=== PATIENT | male | born 1955 | race Caucasian/White ===

== ENCOUNTER → 2020-02-01 | Outpatient (CLI) | payer BC ==
--- NOTE | 2020-02-01 17:48 | US ---
EXAMINATION TYPE: US carotid duplex BILAT DATE OF EXAM: 02/01/2020 COMPARISON: NONE CLINICAL HISTORY: R42 Dizziness and giddiness. Dizziness EXAM MEASUREMENTS: RIGHT: Peak Systolic Velocity (PSV) cm/sec ----- Right CCA: 62.4 ----- Right ICA: 68.1 ----- Right ECA: 71.1 ICA/CCA ratio: 1.1 RIGHT: End Diastole cm/sec ----- Right CCA: 17.4 ----- Right ICA: 21.4 ----- Right ECA: 12.2 LEFT: Peak Systolic Velocity (PSV) cm/sec ----- Left CCA: 74.1 ----- Left ICA: 59.9 ----- Left ECA: 97.4 ICA/CCA ratio: 0.8 LEFT: End Diastole cm/sec ----- Left CCA: 21.0 ----- Left ICA: 21.5 ----- Left ECA: 13.0 VERTEBRALS (direction of flow): Right Vertebral: Antegrade Left Vertebral: Antegrade Rhythm: Normal Bilateral intimal thickening, minimal plaque bilateral bulb, no elevated velocities, no significant s tenosis. IMPRESSION: 1. Intimal thickening without significant flow-limiting stenosis. Criteria for Assigning % of Stenosis / Diameter reduction (Estimation based on the indirect measurements of the internal carotid artery velocities (ICA PSV). 1. Normal (no stenosis)=ICA PSV < 125 cm/s: ratio < 2.0: ICA EDV<40 cm/s. 2. Less than 50% stenosis=ICA PSV < 125 cm/s: ratio < 2.0: ICA EDV<40 cm/s. 3. 50 to 69% stenosis=ICA PSV of 125 to 230 cm/s: ration 2.0 ? 4.0: ICA EDV 40-100 cm/s. 4. Greater than 70% stenosis to near occlusion= ICA PSV > 230 cm/s: ratio > 4.0: ICA EDV > 100 cm/s. 5. Near occlusion= ICA PSV velocities may be low or undetectable: variable ratio and ICA EDV. 6. Total occlusion=unable to detect flow.
== END | disposition home or self-care (01) ==
LOC: RADUSWWP 15:29
PROVIDERS: ATTEND Family Medicine
DX: R42 Dizziness and giddiness (principal)
CPT/HCPCS: 93880

== ENCOUNTER → 2020-03-01 | Outpatient (CLI) | payer BC ==
[~2020-03-01] MED LIST: REGADENOSON 0.4 MG/5 ML SYRINGE IV ONE
--- NOTE | 2020-03-01 14:31 | NM ---
EXAMINATION TYPE: NM stress lexiscan cardiolite DATE OF EXAM: 03/01/2020 COMPARISON: NONE HISTORY: Chest pain TECHNIQUE: After the intravenous administration of 10.47 mCi Tc 99m Sestamibi - Cardiolite resting S PECT images acquired 50 minutes post injection. The patient received 0.4mg Lexiscan, 26.8 mCi Tc 99m Sestamibi - Stress images obtained [address] injection FINDINGS: Review of stress and rest SPECT images demonstrates no distinct perfusion abnormality. Gated analysi s shows normal wall motion with an estimated left ventricular ejection fraction of 62 %. IMPRESSION: 1. No scintigraphic evidence for reversible ischemia. 2. Ejection fraction 62%.
--- NOTE | 2020-03-01 14:44 | EST ---
EXERCISE STRESS AGE: 64 SEX: M HT: 70" WT: 227 lbs. PROTOCOL: Lexiscan Cardiolite STAGE: DURATION OF EXERCISE: HEART RATE REST: 60 BLOOD PRESSURE REST: 124/78 MAXIMUM HEART RATE ACHIEVED: 81 MAXIMUM BLOOD PRESSURE: 119/75 85% MPHR: 130 100% MPHR: 156 METS: INDICATIONS: Dizzy CLINICAL INFORMATION: Baseline EKG shows sinus rhythm, normal axis, normal intervals. Patient was given intravenous Lexiscan as per protocol. Did not have chest pain or diagnostic ST-segment depression. CONCLUSION: 1. Negative stress test by EKG criteria. 2. Cardiolite portion of the stress test will be reported separately. MMODL / IJN: [id number] /
== END | disposition home or self-care (01) ==
LOC: RADNMMAIN 08:20
PROVIDERS: ATTEND Family Medicine
DX: R07.89 Other chest pain (principal)
CPT/HCPCS: 93017; 78452; A9500; J2785

== ENCOUNTER → 2022-12-09 | Outpatient (CLI) | payer MEDICARE ==
--- NOTE | 2022-12-09 17:03 | MR ---
EXAMINATION TYPE: MR angio neck wo/w con, MR angio head wo con DATE OF EXAM: 12/09/2022 4:15 PM CLINICAL INDICATION:Male, 67 years old with history of M54.2 I65.23; Severe chronic right sided neck pain and headaches, history of carotid stenosis. COMPARISON: None Technical: MRA brain: 2D and 3-D [id number] Axial with MIP and 3-D reconstruction. Performed on a separate w orkstation. MRA neck: Multiplanar, multi-sequence imaging as well as grqi-yr-[id number] and phase was performed extra cranial vasculature of the neck. 3-D reformatted images and maximum intensity projection reformatted images were submitted for evaluation, these are performed on a separate workstation. IV Contrast: 11 cc Gadavist Findings: Vertebral arteries: The vertebral arteries are patent. The left vertebral artery is dominant. Basilar artery: The basilar artery is intact. The basilar artery bifurcation is normal. Internal Carotid arteries: Saccular aneurysm measuring 3 x 3 mm at the internal carotid artery bifurc ation on the right. Left internal carotid artery DEMARCO: Patent with no evidence of aneurysm. ACOM: Present without evidence of aneurysm. MCA: No evidence for aneurysm after the bifurcation aneurysm mentioned above ROLLS BAKER: Patent with no evidence of aneurysm. PCOM: Hypoplastic bilaterally. RIGHT CAROTID SYSTEM: The common carotid artery is patent. The carotid bifurcations demonstrates no evidence for hemodynamically significant stenosis. Medialization of the internal carotid artery. Ther e is tortuosity of the internal carotid artery which is patent, there is flow artifact in the 2-D alesha ging series 301 imaging and better localization during the 3-D series 401 imaging. Series 301 image 8 2-85. In series 411 images 54-74. Aneurysm and its bifurcation as mentioned above. LEFT CAROTID SYSTEM: The common carotid artery is patent. Medialization of the internal carotid mustapha ry. The carotid bifurcations demonstrates no evidence for hemodynamically significant stenosis. The i nternal carotid artery is patent with tortuosity. The origins of the great vessels and vertebral arteries appear unremarkable. IMPRESSION: 1. 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 2. No evidence of intracranial significant stenosis. 3. No evidence of significant stenosis at the carotid bifurcations. The carotid and vertebral arteri es are patent. 4. Tortuosity of the internal carotid bifurcations with medialization of the course.
== END | disposition home or self-care (01) ==
LOC: RADMRIMAIN 15:14
PROVIDERS: ATTEND Psychiatry & Neurology Neurology
DX: I65.23 Occlusion and stenosis of bilateral carotid arteries (principal); M54.2 Cervicalgia; R51.9 Headache, unspecified
CPT/HCPCS: 70544; 70549; A9585

== ENCOUNTER → 2023-03-17 | Outpatient (CLI) | payer MEDICARE ==
--- NOTE | 2023-03-17 11:58 | XR ---
EXAMINATION TYPE: XR cervical spine limited DATE OF EXAM: 03/17/2023 COMPARISON: NONE HISTORY: Neck pain TECHNIQUE: Four views are submitted. FINDINGS: The odontoid is intact. There are no compression deformities. The prevertebral soft tissue structur es are within normal limits. Calcification in the soft tissues of the left neck likely vascular. Emp hysematous changes of the lung apices. There is severe degenerative disc disease C4-5 and C5-C6 and C 7. Lucency along the endplate of C5-C6. Moderate changes at remaining levels. Multilevel facet arthro perfecto odontoid is not seen and nondiagnostic. Posterior elements of C1 appears somewhat anterior rela tive to C2 and odontoid fracture not excluded. Additionally, the lateral masses appear displaced rela tive to the body of C2. IMPRESSION: 1. Severe multilevel degenerative disc disease. Suspect foraminal encroachment. Odontoid is not well seen. The posterior elements of the C1 appears somewhat anterior relative to C2. Cannot exclude odont oid abnormality\fracture. Recommend CT of the cervical spine. Report called to referring clinician 11 :52 AM at 03/17/2023.
== END | disposition home or self-care (01) ==
LOC: RADXRMAIN 11:16
PROVIDERS: ATTEND Family Medicine
DX: M50.321 Other cervical disc degeneration at C4-C5 level (principal)
CPT/HCPCS: 72040

== ENCOUNTER → 2023-03-18 | Outpatient (CLI) | payer MEDICARE ==
[2023-03-18 16:03] LABS: Basophils # (A) 0.04 X 10*3/uL (0.00-0.10); Basophils % (A) 0.5 %; Eosinophils # (A) 0.19 X 10*3/uL (0.04-0.35); Eosinophils % (A) 2.2 %; HCT 40.6 % (39.6-50.0); HGB 13.6 d/dL (13.0-17.0); Lymphocytes # (A) 2.24 X 10*3/uL (0.90-5.00); Lymphocytes % (A) 25.7 %; MCH 31.1 pg (27.0-32.0); MCHC 33.5 d/dL (32.0-37.0); MCV 92.9 FL (80.0-97.0); Mean Platelet Volume 10.1 FL (9.5-12.2); Monocytes # (A) 0.82 X 10*3/uL (0.20-1.00); Monocytes % (A) 9.4 %; NRBC Per 100 WBC 0 X 10*3/uL (0.00-0.01); Neutrophils # (A) 5.37 X 10*3/uL (1.80-7.70); Neutrophils % (A) 61.6 %; Platelet Count 354 X 10*3/uL (140-440); RBC 4.37 X 10*6/uL (4.40-5.60); RDW 13.8 % (11.5-14.5); WBC 8.71 X 10*3/uL (4.50-10.00)
[2023-03-18 16:05] LABS: ALT 15 U/L (10-49); AST 19 U/L (14-35); Albumin 4.4 d/dL (3.8-4.9); Albumin/Globulin Ratio 1.47 Ratio (1.60-3.17); Alkaline Phosphatase 60 U/L (41-126); BUN/Creat Ratio 15.33 Ratio (12.00-20.00); Blood Urea Nitrogen 9.2 mg/dL (9.0-27.0); Calcium 9.4 mg/dL (8.7-10.3); Carbon Dioxide 25.6 mmol/L (21.6-31.8); Chloride 95 mmol/L (96-109); Chol/HDL Ratio 3.48 Ratio; Glucose 90 mg/dL (70-110); Potassium 4.3 mmol/L (3.5-5.5); Sodium 132 mmol/L (135-145); Total Bilirubin 0.5 mg/dL (0.3-1.2); Total Protein 7.4 d/dL (6.2-8.2)
[2023-03-18 21:07] LABS: Rheumatoid Factor, Qnt 313 IU/mL (0-15)
[2023-03-19 14:04] LABS: APTT 58 Sec(s) (<43); APTT 1:1 Mix 48 Sec(s) (<43); DRVVT 1:1 Mix 48 Sec(s) (<44); DRVVT Confirmation Positive (Negative); Dilute Russell Viper Venom 57 Sec(s) (<44); Hexagonal Phase Neutralization Positive (Negative)
== END | disposition home or self-care (01) ==
LOC: LABWHC1 09:51
PROVIDERS: ATTEND Family Medicine
DX: Z12.5 Encounter for screening for malignant neoplasm of prostate (principal); M54.2 Cervicalgia
CPT/HCPCS: 80061; 80053; 85025; 85730; 86431; 85613; 86038; 36415; G0103; 85598; 85732

== ENCOUNTER → 2023-03-27 | Outpatient (CLI) | payer MEDICARE ==
--- NOTE | 2023-03-28 09:03 | CT ---
EXAMINATION TYPE: CT cervical spine wo/w con DATE OF EXAM: 03/27/2023 COMPARISON: Plain films 03/17/2023 HISTORY: right side neck pain and headaches, x1 year CT DLP: 1501 mGycm Automated exposure control for dose reduction was used. Contrast: None Technique: Axial images 2 mm thick sections. Reconstructed images in the coronal and sagittal planes. Postcontrast imaging is performed. FINDINGS: The preodontoid space is increased between C1 and C2 measuring 0.8 cm. This is above normal. C1 may b e slightly anteriorly subluxed in relation to the occiput. There is loss of disc height throughout the cervical spine. Some cervical fusion posteriorly may be a cquired between C2-3 C3-4 and C4-5. Some posterior endplate spurring from the inferior endplate of C5 may be present. Disc space narrowing remains present C5-6 and C6-7. Foraminal stenosis is present C3-4 through C6-7 bilaterally. AP spinal canal stenosis is not otherwis e evident. Emphysematous changes are noted in the lung apices within the jgvzp-ya-eyas IMPRESSION: 1. SUSPECTED SUBLUXATION OF C1 IN RELATION TO THE OCCIPUT. THIS INCREASES THE DISTANCE BETWEEN THE OD ONTOID AND C1. SOME CANAL NARROWING WITHOUT STENOSIS IS PRESENT BETWEEN THE ODONTOID AND POSTERIOR C1 . 2. MULTI LEVEL LOSS OF DISC HEIGHT WITH SOME APPARENT ACQUIRED FUSION POSTERIORLY OF C2 TO 3 THROUGH C4-5. 3. MULTILEVEL BILATERAL MODERATE FORAMINAL NARROWING C3-4 THROUGH C6-7.
== END | disposition home or self-care (01) ==
LOC: RADCTMAIN 10:29
PROVIDERS: ATTEND Family Medicine
DX: M99.71 Connective tissue and disc stenosis of intervertebral foramina of cervical region (principal); M50.31 Other cervical disc degeneration, high cervical region
CPT/HCPCS: 72127; Q9967

== ENCOUNTER → 2023-04-24 | Outpatient (CLI) | payer MEDICARE ==
--- NOTE | 2023-04-24 12:47 | MR ---
EXAMINATION TYPE: MR cervical spine wo con DATE OF EXAM: 04/24/2023 COMPARISON: CT 03/27/2023 HISTORY: 67-year-old male M54.2, S13.120D, Neck pain x 1 yr S/P head injury. TECHNIQUE: Multiplanar, multisequence images of the cervical spine were acquired without contrast. FINDINGS: There is fluid in the predental space with widening of 8 mm. Severe degenerative change towards the r ight at the C1-C2 lateral mass articulation. Retrolisthesis at C1-C2. Review of the patient's CT show s interbody ankylosis across the right-sided lateral mass articulation. The subluxation contributes to mild narrowing of the spinal canal at the C1 level. No gely canal com promise here. There is right-sided interbody ankylosis across C3, C4, C5 levels. Fatty Modic type II endplate stokes es present throughout these vertebral bodies. Moderate disc/degenerative change just below at C5-C6 with some edematous Modic type I endplate stokes e. Additional moderate degenerative disc disease C2-C3 and C7-T1. Hypertrophic facet and uncovertebral joint arthropathy. Scattered ankylosis across posterior elements and facet joints on both sides. Posterior osteophytic ridging and mild disc bulging along with ligamentum flavum thickening contribut es to variable mild narrowing of the spinal canal down to 9 mm throughout. Again, no gely canal compromise or cord compression is seen. On sagittal STIR, prominent signal artifacts project over the cord. No definite cord edema on axial s eries. At C3-C4, there appears to be moderate right neuroforaminal stenosis. At C4-C5, mild left neuroforaminal stenosis. At C5-C6, moderate bilateral neuroforaminal stenosis. At C6/C7, mild to moderate left and mild right neuroforaminal stenosis. Degenerative grade 1 retrolisthesis C2-C3. Retropharyngeal course of the ICAs. IMPRESSION: 1. Moderate multilevel spondylotic change. Multiple levels of degenerative bony ankylosis across the facet joints on both sides. Also, bony ankylosis of the C3, C4, and C5 vertebral bodies. 2. Posterior osteophytic ridging, mild disc bulging, and scattered ligamentum flavum thickening varia himanshu throughout. This contributes to mild diffuse narrowing of the spinal canal down to 9 mm throughou t. No cord compression or gely canal compromise is seen. 3. While there is abnormal predental space widening up to 8 mm (suggesting prior injury to the transv erse ligament), there is degenerative bony ankylosis across the right C1-C2 lateral mass articulation that likely gives stability to the subluxation. There is only mild narrowing of the spinal canal at this level. Again, no gely canal compromise. Additional bony ankylosis across the right-sided cranio cervical articulation. 4. Variable mild and moderate neuroforaminal stenoses as outlined above.
== END | disposition home or self-care (01) ==
LOC: RADMRIMAIN 10:47
PROVIDERS: ATTEND Orthopaedic Surgery
DX: S13.120D Subluxation of C1/C2 cervical vertebrae, subsequent encounter (principal); M47.812 Spondylosis without myelopathy or radiculopathy, cervical region; M99.71 Connective tissue and disc stenosis of intervertebral foramina of cervical region; M48.02 Spinal stenosis, cervical region; M50.30 Other cervical disc degeneration, unspecified cervical region; M45.2 Ankylosing spondylitis of cervical region; X58.XXXD Exposure to other specified factors, subsequent encounter
CPT/HCPCS: 72141

== ENCOUNTER → 2023-07-23 | Outpatient (CLI) | payer MEDICARE ==
[2023-07-23 18:56] LABS: Basophils # (A) 0.03 X 10*3/uL (0.00-0.10); Basophils % (A) 0.3 %; Eosinophils # (A) 0.13 X 10*3/uL (0.04-0.35); Eosinophils % (A) 1.4 %; HCT 40.1 % (39.6-50.0); HGB 13.2 g/dL (13.0-17.0); Lymphocytes % (A) 22.3 %; MCH 31.2 pg (27.0-32.0); MCHC 32.9 g/dL (32.0-37.0); MCV 94.8 FL (80.0-97.0); Mean Platelet Volume 10.2 FL (9.5-12.2); Monocytes # (A) 0.91 X 10*3/uL (0.20-1.00); Monocytes % (A) 9.7 %; NRBC Per 100 WBC 0 X 10*3/uL (0.00-0.01); Neutrophils # (A) 6.18 X 10*3/uL (1.80-7.70); Neutrophils % (A) 65.8 %; Platelet Count 320 X 10*3/uL (140-440); RBC 4.23 X 10*6/uL (4.40-5.60); RDW 14.6 % (11.5-14.5)
[2023-07-23 19:33] LABS: INR 1.06 sec (0.93-1.11); Prothrombin Time 11.4 sec (9.9-11.9)
[2023-07-23 23:28] LABS: ALT 14 U/L (10-49); AST 16 U/L (14-35); Albumin 4.4 g/dL (3.8-4.9); Albumin/Globulin Ratio 1.57 Ratio (1.60-3.17); Alkaline Phosphatase 61 U/L (41-126); BUN/Creat Ratio 20.83 Ratio (12.00-20.00); Blood Urea Nitrogen 12.5 mg/dL (9.0-27.0); Calcium 9.7 mg/dL (8.7-10.3); Carbon Dioxide 26.3 mmol/L (21.6-31.8); Chloride 93 mmol/L (96-109); Globulin 2.8 g/dL (1.6-3.3); Glucose 85 mg/dL (70-110); Potassium 4.5 mmol/L (3.5-5.5); Sodium 133 mmol/L (135-145); Total Bilirubin 0.3 mg/dL (0.3-1.2); Total Protein 7.2 g/dL (6.2-8.2)
== END | disposition home or self-care (01) ==
LOC: LABWHC1 12:17
PROVIDERS: ATTEND Family Medicine
DX: G89.29 Other chronic pain (principal)
CPT/HCPCS: 36415; 80053; 82306; 85025; 85610

== ENCOUNTER → 2023-08-07 | Outpatient (CLI) | payer MEDICARE | END | disposition home or self-care (01) | LOC: LABPAT 11:36 | PROVIDERS: ATTEND Orthopaedic Surgery | DX: Z01.812 Encounter for preprocedural laboratory examination (principal); Z22.322 Carrier or suspected carrier of Methicillin resistant Staphylococcus aureus; M54.2 Cervicalgia | CPT/HCPCS: 36415; 86850; 86900; 86901; 87070 ==

== ENCOUNTER 2023-08-11 06:53 | Inpatient (IN) | payer MEDICARE ==
[2023-08-06 16:32] VITALS: BMI 33.0
--- NOTE | 2023-08-11 06:47 | P.HPOR ---
History of Present Illness H&P Date: 08/07/23 .D:Date: 08/07/23 : 10:48am .T:Title: [facility] History and Physical Date of :55 [id number]: NKDA Age: 67 year Height: 5'10" Weight: 228 lbs BMI: 32.71 kg/m2 Occupation: Retired VAS: 4 Hand:Right IMPRESSION: It was my pleasure to have seen and examined Dhaval. I reviewed the patient's clinical syndrome, physical findings, and imaging studies during the appointment today. It is my impression that the patient has a diagnosis of. 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 Neck pain 4. subaxial subluxation 5. Basilar invagination I outlined the natural course history without intervention and various interventional options. Spine Surgery Risk Review Mr. Bah is presenting for evaluation of neck pain It was my pleasure to have seen and examined Mr. Bah. In our visit today we have had a chance to go over subjective complaints, physical examination findings and treatments including the natural course history without intervention and various interventional options. The patients imaging demonstrates: Severe rheumatological signs of neck deterioration with rheumatoid spondylotic arthropathy, C1-2 instability with increased LACHO >3; Basilar invagination; Subaxial subluxation. Severe spondylosis of subaxial cervical levels as well with severe stenosis. On physical exam, Mr. Bah demonstrates: Neck pain, limited ROM secondary to neck pain and spondylosis as well as basilar issues. UE and LE weakness. Discoordination. Myelopathy I have explained to the patient that as their condition progresses it will cause further neurological deficits and eventual paralysis. Based on the patients imaging, physical exam, and the rapid progression and disabling nature of their symptoms, at this time I recommend surgery in the form of a: Occipital - T2 decompression and fusion. I discussed the risk and benefits of this procedure at length with Mr. Bah. The patient agreed to considered pursuing the procedure abovementioned. Prior to surgery, she should follow up with her PCP (Cardio, ID, IM etc) for clearance. Questions were invited and answered, and the patient wishes to proceed as outlined below. Currently, I am recommendin.Occipital - T2 decompression and fusion 2.Review of surgical risks and benefits as well as an educational packet on the proposed surgical procedure. Risks: All surgical procedures come with inherent risks, including those related to positioning, anesthesia, intraoperative findings, and postoperative complications. It is important to understand that surgery does not come with any guarantee of a successful outcome as complications and adverse events are always possible. The patient was given a handout in office today discussing the surgical procedure and risks associated with the intervention, both of which were discussed with the patient. These risks include but are not limited to the following: * Experiencing same, different or even worse symptoms in back, neck, arms, or legs compared to before surgery. Requiring further surgery or other forms of treatment presently or at some time in the future at same or other levels of the intended spine surgery. On an extreme but fortunately relatively rare basis severe complication such as blindness, stroke, heart attack, temporary and/or permanent nerve injury, pa ralysis, coma, or may occur, sometimes without known explanation. Surgical complications may include but are not limited to risk of infection, fluid accumulation in the surgical dissection site, including a seroma or hematoma, that requires additional surgery, wound drainage, bleeding, new numbness or weakness, vision changes/loss, spinal fluid leakage, non-healing and/or infected incision, headaches, difficulty or inability to swallow, hoarseness, hemopneumothorax, pneumothorax, impotence, retrograde ejaculation, vaginal dryness; injury to nerves, spinal cord, blood vessels, lymphatics or other vital organs (i.e., bowel injury, injury to the great vessels); heterotopic bone formation; complications related to the hardware such as screws, rods, cages including misplaced hardware, device failure, instrumentation at the wrong spine level, hardware fracture/breakage, or hardware loosening; vertebral failure of the spinal column above or below the newly placed hardware; retained surgical instrumentations or devices and the need for further surgery. * Medical risks of the planned spine surgery include but are not limited to generalized Infections to the whole body or local areas outside of the surgical site (sepsis), heart attack, bleeding, anaphylaxis, meningitis, seizure, epilepsy, hearing loss, burn cerrato, laceration of the head or other areas of the body, bruising, hypersensitivity of the skin, bladder over distension; allergic reaction; shoulder injury related to positioning; fat, blood and air clots to other areas of the body like heart, lungs, brain; failure of internal organs such as lungs, kidneys, liver and excessive bleeding. If blood transfusions are necessary, note that transfusions may cause intolerance reactions such as anaphylaxis or other complex reactions. Despite best efforts, the results of spine surgery might not heal in terms of bone, soft tissues such as skin, fascia, ligaments, and joints. Additionally, in order to achieve best possible results, spine surgery may be carried out beyond the initially planned levels and involve decompression, fusion including insertion of hardware at levels other than the original intended area of trino gical interest change some portions of the procedure in order to ensure the best possible outcomes. With spine surgery and spinal fusion, there are different off label uses of instrumentation (devices, implants and hardware) as well as biological substances (bone morphogenic proteins, demineralized bone matrix) as well as using extra bone from allograft sources (i.e. cadaver bone) or autograft (iliac crest bone, ribs, or the spine itself). The patient has been given information about these practices and their inherent risks and benefits. [facility] is an educational center that serves as a training facility for neurosurgical and orthopedic [employer] and Nursing students. Physician assistants are medically trained surgical providers who function in the outpatient, inpatient, and operating room setting under the direct supervision of the attending surgeon. [facility] has multiple operating rooms with single and overlapping rooms running daily. They currently function under the required guidelines as produced by the [facility] Finance Committee with regards to the overlapping rooms and will continue to comply with changes to this policy as they occur. The requirements include and are complied with as follows: (1) the critical portions of the overlapping rooms will not occur at the same time, (2) the attending physician will be physically present during the critical portions of the procedure and immediately available during the entire case, and (3) a back-up attending is designated should the primary attending not be immediately available. The patient has had a chance to review all the listed information, has been given print outs detailing this information, and has had all his/her questions answered to their satisfaction. It was my pleasure to have seen and examined Mr. Bah. In our visit today we have had a chance to go over my understanding of our patient's current condition, the natural course history without intervention and various interventional options. Questions were invited and answered, and the patient wishes to proceed as outlined above. I have seen and examined the patient for 25 minutes and we have spent more than 50% of the time in repeat and detailed counseling about the patient's condition, its natural course history with out and as much as can be predicted with surgery and re-review of various surgical treatment options. In conclusion, Mr. Bah requested we proceed with the above suggested surgery and are willing to accept risks and limitations of the suggested surgery as nature of the disease process and our best attempts at treatment for the condition. Thank you again for allowing us to be part of your patient's care. Please don't hesitate to contact me if you have any further questions. Follow- up: Post procedure Patient Education: (Informational booklet, instructions, etc) given at today's appointment: Yes .ED:Patient Education: Y Medications Reviewed: YES In our visit today Mr. Bah and I have had a chance to go over my understanding of the patient's current condition, the natural course history without intervention and various interventional options. Questions were invited and answered, and the patient wishes to proceed as outlined above. I will be sure to keep you updated afterMr. Bah returns here for further follow-up. Thank you again for your referral. Please do not hesitate to contact me if you have any further questions. Signed and authenticated by: Dhaval Byrd [facility] [address] [place] [id number] This message is confidential, intended only for the named recipient(s) and may contain information that is privileged or exempt from disclosure under applicable law. If you are not the intended recipient(s), you are notified that the dissemination, distribution or copying of this information is strictly prohibited. If you received this message in error, please notify the sender then delete this message. Patient verbalizes understanding of the information discussed. The above note was initiated by Dahlia Quinones, physician recording golf course assistant for Dr. Dhaval Kumar. This note has been reviewed by Dr. Kumar, who has made his personal changes and impressions for this document. CC: Faheem Loyd MD # SIGNED BY Dhaval Kumar (GOO)08/11/2023 06:46AM Past Medical History Past Medical History: No Reported History Additional Past Medical History / Comment(s): Daily headaches. History of Any Multi-Drug Resistant Organisms: None Reported Past Surgical History: Orthopedic Surgery Additional Past Surgical History / Comment(s): KNEE ARTHROSCOPY Past Anesthesia/Blood Transfusion Reactions: No Reported Reaction Past Alcohol Use History: Heavy Additional Past Alcohol Use History / Comment(s): STARTED SMOKING AT AGE 16 - Past Family History Father Family Medical History: No Reported History Medications and Allergies Home Medications Medication Instructions Recorded Confirmed Type Cholecalciferol (Vitamin D3) 125 mcg PO DAILY 08/07/23 08/07/23 History [Vitamin D3 (125 MCG = 5,000 IU)] Glucosamine (Unknown Dose) 1 tab PO DAILY 08/07/23 08/07/23 History Multivitamins, Thera [Multivitamin 1 tab PO DAILY 08/07/23 08/07/23 History (formulary)] Rivaroxaban [Xarelto] 2.5 mg PO DAILY 08/07/23 08/07/23 History Telmisartan/Hydrochlorothiazid 1 each PO QAM 08/07/23 08/07/23 History [Telmisartan-Hctz 80-25 mg Tab] methocarbamoL 750 mg PO TID PRN 08/07/23 08/07/23 History Allergies Allergy/AdvReac Type Severity Reaction Status Date / Time No Known Allergies Allergy Verified 08/06/23 16:03 Physical Examination Osteopathic Statement: *. No significant issues noted on an osteopathic structural exam other than those noted in the History and Physical/Consult.
[~2023-08-11 06:53] MED LIST changes: +ACETAMINOPHEN TAB 500 MG TAB PO PRN; +GABAPENTIN 300 MG CAP PO PRN; +ONDANSETRON 4 MG/2 ML VIAL IVP PRN; -REGADENOSON 0.4 MG/5 ML SYRINGE IV ONE; +TRANEXAMIC 1,000 MG/100ML-NACL 1,000 MG in SALINE 1 100ML.BAG IVPB PRN
[2023-08-11] MEDS ORDERED: HYDROmorphone 0.5 MG/0.5 ML SYRINGE IVP PRN (07:00)
[2023-08-11] MEDS ORDERED: MIDAZOLAM 2 MG/2 ML VIAL IV PRN (07:00)
[2023-08-11] MEDS: LACTATED RINGERS 1,000 ML IV SCH (07:15)
[2023-08-11] MEDS ORDERED: MIDAZOLAM 2 MG/2 ML VIAL IVP ONE (08:07)
[2023-08-11] MEDS ORDERED: fentaNYL (PF) 50 MCG/ML 2 ML AMP IVP ONE (08:08)
[2023-08-11] MEDS ORDERED: PROPOFOL 10 MG/ML 20 ML VIAL IV ONE (09:12)
[2023-08-11] MEDS ORDERED: MIDAZOLAM 2 MG/2 ML VIAL ONE (09:12)
[2023-08-11] MEDS ORDERED: fentaNYL (PF) 50 MCG/ML 2 ML AMP ONE (09:12)
[2023-08-11] MEDS ORDERED: NEOSTIGMINE 1 MG/ML 10 ML VIAL ONE (09:12)
[2023-08-11] MEDS ORDERED: GLYCOPYRROLATE 0.2 MG/ML 2 ML VIAL ONE (09:12)
[2023-08-11] MEDS ORDERED: TRANEXAMIC 1,000 MG/100ML-NACL PREMIX BAG ONE (09:12)
[2023-08-11] MEDS ORDERED: SUCCINYLCHOLINE CHLORIDE 200 MG/10 ML VIAL IV ONE (09:12)
[2023-08-11] MEDS ORDERED: LIDOCAINE 1% INJ 10MG/ML (20 ML MDV) ONE (09:12)
[2023-08-11] MEDS ORDERED: ROCURONIUM 10 MG/ML (5 ML VIAL) IV ONE (09:12)
[2023-08-11] MEDS ORDERED: PHENYLEPHRINE-0.9% NACL SYG 1,000 MCG/10 ML SYRINGE ONE (09:12)
[2023-08-11] MEDS ORDERED: THROMBIN (BOVINE) 5,000 UNIT VIAL TOPICAL ONE ×3 (10:14)
[2023-08-11] MEDS ORDERED: GELATIN SPONGE,ABSORB (SMALL) 1 EACH SPONGE TOPICAL ONE (10:14)
[2023-08-11] MEDS ORDERED: LACTATED RINGERS 1,000 ML IV ONE (12:43)
[2023-08-11] MEDS ORDERED: VANCOMYCIN 1,000 MG VIAL MISCELLANE ONE (13:45)
[2023-08-11] MEDS ORDERED: HYDROmorphone 0.5 MG/0.5 ML SYRINGE IVP ONE ×3 (14:53→15:21)
--- NOTE | 2023-08-11 14:59 | FL ---
EXAMINATION TYPE: FL guidance operating room, XR cervical spine limited Intraoperative/procedural flu oroscopic services were provided. Total fluoroscopy time is 1 minute 18 seconds with a total of 14 jackson bmitted images to PACS. Please see the operative/procedural note for further details. DAP: 2.9271 Gycm2
[2023-08-11] MEDS ORDERED: methocarbamoL 750 MG TAB PO PRN (15:02)
[2023-08-11] MEDS ORDERED: MAGNESIUM HYDROXIDE 2,400 MG/30 ML CUP PO PRN (15:02)
[2023-08-11] MEDS ORDERED: SENNOSIDES-DOCUSATE SODIUM 1 EACH TAB PO PRN (15:02)
[2023-08-11] MEDS ORDERED: NALOXONE 0.4 MG/ML 1 ML VIAL IV PRN (16:02)
[2023-08-11 16:11] LABS: Glucose,Whole Blood 121 mg/dL (70-110)
--- NOTE | 2023-08-11 16:48 | P.CNPUL ---
History of Present Illness Consult date: 08/11/23 Requesting physician: Dhaval Kumar Reason for consult: other (Critical care management) Chief complaint: Neck pain History of present illness: This is a pleasant 67-year-old male patient with a known history of rheumatoid spondylotic myelopathy with deformity and ongoing neck pain. He was brought in electively today and had undergone a posterior cervical decompression fusion occipital to T2 with nerve integrity monitoring. Based on the location of the surgery he was admitted to the intensive care unit for close monitoring overnight. He is currently resting comfortably in bed. Hard c-collar in place. He is maintaining good O2 saturations in the 90s on 2 L/m per nasal cannula. He's been afebrile. Hemodynamically stable. His been initiated on cefazolin. He has lactated Ringer's at 20 ML's per hour. He will receive [place] alternating with Dilaudid for pain control. Review of Systems REVIEW OF SYSTEMS: CONSTITUTIONAL: Denies any recent significant weight loss or weight gain. EYES: Denies change in vision. EARS, NOSE, MOUTH, THROAT: Denies headaches, denies sore throat. CARDIOVASCULAR: Denies chest pain, palpitations or syncopal episodes. RESPIRATORY: Denies shortness of breath, cough, congestion or hemoptysis. GASTROINTESTINAL: Denies change in appetite, denies abdominal pain GENITOURINARY: Denies hematuria, denies infections. MUSKULOSKELETAL: Positive for neck pain. INTEGUMENTARY: Denies rash, denies eczema. NEUROLOGICAL: Denies recent memory loss, no recent seizure activity. PSYCHIATRIC: Denies anxiety, denies depression. HEMATOLOGIC/LYMPHATIC: Denies anemia, denies enlarged lymph nodes. Past Medical History Past Medical History: No Reported History Additional Past Medical History / Comment(s): Daily headaches. History of Any Multi-Drug Resistant Organisms: None Reported Past Surgical History: Orthopedic Surgery Additional Past Surgical History / Comment(s): KNEE ARTHROSCOPY Past Anesthesia/Blood Transfusion Reactions: No Reported Reaction Past Alcohol Use History: Heavy Additional Past Alcohol Use History / Comment(s): STARTED SMOKING AT AGE 16 - Past Family History Father Family Medical History: No Reported History Medications and Allergies Home Medications Medication Instructions Recorded Confirmed Type Cholecalciferol (Vitamin D3) 125 mcg PO DAILY 08/07/23 08/11/23 History [Vitamin D3 (125 MCG = 5,000 IU)] Glucosamine (Unknown Dose) 1 tab PO DAILY 08/07/23 08/11/23 History Multivitamins, Thera [Multivitamin 1 tab PO DAILY 08/07/23 08/11/23 History (formulary)] Rivaroxaban [Xarelto] 2.5 mg PO DAILY 08/07/23 08/11/23 History Telmisartan/Hydrochlorothiazid 1 each PO QAM 08/07/23 08/11/23 History [Telmisartan-Hctz 80-25 mg Tab] methocarbamoL 750 mg PO TID PRN 08/07/23 08/11/23 History Allergies Allergy/AdvReac Type Severity Reaction Status Date / Time No Known Allergies Allergy Verified 08/11/23 07:28 Physical Exam Vitals: Vital Signs Temp Pulse Resp BP Pulse Ox 08/11/23 15:59 74 20 136/72 97 08/11/23 15:31 72 18 132/66 95 08/11/23 15:16 73 20 135/75 94 L 08/11/23 15:01 73 20 134/85 94 L 08/11/23 14:46 97.2 F L 79 16 137/70 98 08/11/23 08:23 80 18 119/74 96 08/11/23 07:27 97.0 F L 75 18 119/65 96 Intake and Output 08/11/23 08/11/23 08/11/23 06:59 14:59 22:59 Intake Total 1950 Output Total 600 400 Balance 1350 -400 Intake: IV 1950 Output: Urine 500 400 Estimated Blood Loss 100 Other: Weight 104.6 kg GENERAL EXAM: Alert, 7-year-old male patient, resting flat in bed, on 2 L nasal cannula, comfortable in no apparent distress. HEAD: Normocephalic. EYES: Normal reaction of pupils, equal size. NOSE: Clear with pink turbinates. THROAT: No erythema or exudates. NECK: C- collar in place. No masses, no JVD. CHEST: No chest wall deformity. LUNGS: Equal air entry with no crackles, wheeze, rhonchi or dullness. CVS: S1 and S2 normal with no audible murmur, regular rhythm. ABDOMEN: No hepatosplenomegaly, normal bowel sounds, no guarding or rigidity. SPINE: No scoliosis or deformity SKIN: No rashes CENTRAL NERVOUS SYSTEM: No focal deficits, tone is normal in all 4 extremities. EXTREMITIES: There is no peripheral edema. No clubbing, no cyanosis. Peripheral pulses are intact. 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 Postoperative day #0 History of hypertension Chronic tobacco dependence Plan: The patient was seen and evaluated Currently stable and on 2 L nasal cannula Continued on cefazolin [place] and Dilaudid for pain control as needed Plan is to monitor overnight here in the intensive care unit We will continue to follow and make further recommendations based on his c linical status I have personally seen and examined the patient, performed the documentation and the assessment and plan as written. Number of minutes spent on the visit: 20.
[2023-08-11] MEDS: ACETAMINOPHEN TAB 325 MG TAB PO SCH ×2 (17:01→23:16)
--- NOTE | 2023-08-11 17:34 | P.CONS ---
History of Present Illness - Reason for Consult Consult date: 08/11/23 - Chief Complaint med mgmt - History of Present Illness 67-year-old man with a medical history of hypertension, osteoarthritis, rheumatoid arthritis, presented for elective cervical decompression fusion from occipital to T2. Medicine was consulted for medical management. Patient's only complaint is right-sided headache consistent with his history of chronic headaches for the last several months, not associated with photophobia, phonophobia, nausea, vomiting, visual disturbance. Patient otherwise has no complaints status post surgery. He is resting in bed comfortably with c-collar in place. Today, patient is afebrile, 160/72, heart rate 76, 92% on 2 L of nasal cannula. His qaeie-ab-eicj glucose is 121, no other labs to review at this time. All Systems reviewed and pertinent positives and negatives noted in HPI, all other symptoms are negative Gen: In NAD, non-toxic HEENT: normocephalic, atraumatic, hearing acuity is intant, mucous membranes moist CVS: perfusing all extremities well, no pitting edema, Respiratory: symmetric chest expansion, no accessory muscle use, GI: soft, NTTP, ND, : no suprapubic tenderness, no CVA tenderness MSK/Derm: no rashes, cyanosis Neuro: CN II-XII intact, no motor weakness, Psych: cooperative, euthymic mood, judgment and insight is intact Labs and imaging as above Assessment/plan: Hypertension -Okay to resume patient's home telmisartan/hydrochlorothiazide once BMP confirms no kidney dysfunction/RONNIE -I ordered BMP, magnesium for tomorrow Right-sided headache -Tylenol as needed -Consideration of migraine abortive meds and outpatient referral to neurology if these headaches do not resolve status post-operation Osteoarthritis Rheumatoid arthritis Cervical decompression, occiput to T2 -Care per primary team -DVT prophylaxis per primary team -I requested that nursing touch base with consulting provider tomorrow prior to starting DVT prophylaxis because patient is on Xarelto at home, but does not appear to meet any indication that it is clear, specifically, he does not have a history of atrial fibrillation, VTE, or chronic CAD, but does appear to be taking a low dose of 2.5 mg Xarelto daily. We can consider using his home dose of Xarelto for DVT prophylaxis, but long-term the indication for this medication needs to be elucidated. Potentially, it was started for history of "narrowing of neck artery", however, patient is not on aspirin or another antiplatelet. For now we will order carotid duplex for further characterization of neck narrowing. Patient is full code Past Medical History Past Medical History: No Reported History Additional Past Medical History / Comment(s): Daily headaches. History of Any Multi-Drug Resistant Organisms: None Reported Past Surgical History: Orthopedic Surgery Additional Past Surgical History / Comment(s): KNEE ARTHROSCOPY Past Anesthesia/Blood Transfusion Reactions: No Reported Reaction Past Alcohol Use History: Heavy Additional Past Alcohol Use History / Comment(s): STARTED SMOKING AT AGE 16 - Past Family History Father Family Medical History: No Reported History Medications and Allergies Home Medications Medication Instructions Recorded Confirmed Type Cholecalciferol (Vitamin D3) 125 mcg PO DAILY 08/07/23 08/11/23 History [Vitamin D3 (125 MCG = 5,000 IU)] Glucosamine (Unknown Dose) 1 tab PO DAILY 08/07/23 08/11/23 History Multivitamins, Thera [Multivitamin 1 tab PO DAILY 08/07/23 08/11/23 History (formulary)] Rivaroxaban [Xarelto] 2.5 mg PO DAILY 08/07/23 08/11/23 History Telmisartan/Hydrochlorothiazid 1 each PO QAM 08/07/23 08/11/23 History [Telmisartan-Hctz 80-25 mg Tab] methocarbamoL 750 mg PO TID PRN 08/07/23 08/11/23 History Allergies Allergy/AdvReac Type Severity Reaction Status Date / Time No Known Allergies Allergy Verified 08/11/23 07:28 Physical Exam Osteopathic Statement: *. No significant issues noted on an osteopathic structural exam other than those noted in the History and Physical/Consult. Vitals: Vital Signs Temp Pulse Pulse Resp BP BP Pulse Ox 08/11/23 17:00 70 18 98 08/11/23 16:45 75 18 97 08/11/23 16:30 70 18 137/72 96 08/11/23 16:15 97.5 F L 76 19 92 L 08/11/23 15:59 74 20 136/72 97 08/11/23 15:31 72 18 132/66 95 08/11/23 15:16 73 20 135/75 94 L 08/11/23 15:01 73 20 134/85 94 L 08/11/23 14:46 97.2 F L 79 16 137/70 98 08/11/23 08:23 80 18 119/74 96 08/11/23 07:27 97.0 F L 75 18 119/65 96 Intake and Output 08/11/23 08/11/23 08/11/23 06:59 14:59 22:59 Intake Total 1950 150 Output Total 600 400 Balance 1350 -250 Intake: IV 1950 Intake, IV Titration 90 Amount Lactated Ringers 1,000 ml 40 @ 20 mls/hr IV .Q24H YAJAIRA Rx#:[id number] ceFAZolin 2 gm In Sodium 50 Chloride 0.9% 50 ml @ 100 mls/hr IVPB Q8H YAJAIRA Rx#: [id number] Oral 60 Output: Urine 500 400 Estimated Blood Loss 100 Other: Weight 104.6 kg ABP, PAP, CO, CI - Last 8 Hours Arterial Blood Pressure 140/72 Arterial Blood Pressure 149/68 Arterial Blood Pressure 128/81 Arterial Blood Pressure 160/72 Results Labs: Abnormal Lab Results - Last 24 Hours (Table) 08/11/23 Range/Units 16:10 POC Glucose (mg/dL) 121 H (70-110) mg/dL
--- NOTE | 2023-08-11 17:53 | CT ---
EXAMINATION TYPE: CT cervical spine wo con DATE OF EXAM: 08/11/2023 COMPARISON: 03/27/2023 HISTORY: post-op CT DLP: 487.5 mGycm Automated exposure control for dose reduction was used. TECHNIQUE: CT scan of the cervical spine is obtained without contrast, axial images are obtained, sa gittal and coronal reformatted images are also reviewed. FINDINGS: There has been recent fusion from the occiput through T2 and wide laminectomy from C2-3 through C7/T1 . There are multiple skin charlene in the posterior midline soft tissues. There is scattered gas poste rior to the thecal sac and within the subcutaneous soft tissues. The craniovertebral junction is normal. There is marked soft tissue swelling of the prevertebral soft tissues at the airway is patent. The cervical vertebral segments are normal in height and alignment. There is near complete fusion C4- 5 vertebral segments and there is moderate degenerative disease at C2-3, C3-4, C5-6 and C6-7 levels. There is no significant bony neural foraminal stenosis. Evaluation of the cervical canal is limited by metallic artifact and by the noncontrast technique. There is a drainage catheter posterior to the left aspect of the thecal sac in the surgical bed. At t he C3-4 level, there is a mass with air bubbles with density slightly greater than the adjacent CSF could represent hemorrhage or early abscess formation. It compresses the posterior aspect of the thec al sac. The drainage catheter appears to lie along the left lateral aspect of this collection.. IMPRESSION: 1. Recent right laminectomy and fusion from the occiput to T2 as described above. 2. Marked prevertebral soft tissue swelling the airway is patent. 3. Cervical vertebral segments are normal in height and alignment for multilevel moderate degenerativ e disc disease. 5. Cannot exclude posterior focal hemorrhage or complex fluid collection with air bubbles at the C3-4 level compressing the posterior aspect of the thecal sac.
--- NOTE | 2023-08-11 19:53 | P.ANPRN ---
Procedure Note - Anesthesia - Invasive Line Left Arterial Line Time Out Performed: Yes Location of Patient: PreOp Preparation: Sterile Prep, Sterile Dressing Arterial Line Location: Radial Ultrasound Used: No Purpose - Visualization and Identification of Vasculature: No Narrative: Central line placement per sterile protocol utilized. Informed consent obtained from the patient. Procedure was performed under complete aseptic precautions. The left wrist is slightly extended and placed on a roll of cloth. Radial artery palpated and appeared to have a intact collateral circulation. Front of the wrist was cleaned with ChloraPrep. It was draped and 2 mL of 1% lidocaine was infiltrated and ability into the front of the wrist. A 20-gauge two and half inch Arrow arterial catheter was inserted and a bright red blood/back was noticed. It was connected to the pressure monitoring line and the flashback was confirmed. The line was sutured into the skin. Tegaderm dressing was applied. Patient tolerated the procedure very well with no apparent complications.
[2023-08-11] MEDS: HYDROcodone/APAP 5-325MG 1 EACH TAB PO PRN (20:24)
[2023-08-11] MEDS: GABAPENTIN 300 MG CAP PO SCH (20:25)
[2023-08-11] MEDS: HYDROmorphone 0.5 MG/0.5 ML SYRINGE IVP PRN (23:16)
[2023-08-12] MEDS: HYDROmorphone 1 MG/ML 1 ML SYRINGE IVP PRN ×3 (03:26→21:23)
[2023-08-12 04:16] LABS: Basophils % (A) 0 %; Eosinophils # (A) 0.1 k/uL (0-0.7); Eosinophils % (A) 1 %; HCT 35.6 % (39.0-53.0); Lymphocytes # (A) 1.3 k/uL (1.0-4.8); Lymphocytes % (A) 11 %; MCH 31.6 pg (25.0-35.0); MCHC 33.7 g/dL (31.0-37.0); MCV 93.8 fL (80.0-100.0); Mean Platelet Volume 8.2; Monocytes # (A) 0.6 k/uL (0-1.0); Monocytes % (A) 5 %; Neutrophils # (A) 9.8 k/uL (1.3-7.7); Neutrophils % (A) 83 %; Platelet Count 295 k/uL (150-450); RDW 13.5 % (11.5-15.5); WBC 11.9 k/uL (3.8-10.6)
[2023-08-12 04:25] LABS: African American GFR (CKD) >90 (>60 ml/min/1.73 sqM); Anion Gap 6 mmol/L; Blood Urea Nitrogen 11 mg/dL (9-20); Calcium 8.4 mg/dL (8.4-10.2); Carbon Dioxide 28 mmol/L (22-30); Chloride 93 mmol/L (98-107); Glucose 114 mg/dL (74-99); Non-African American GFR(CKD) >90 (>60 ml/min/1.73 sqM); Sodium 127 mmol/L (137-145)
[2023-08-12] MEDS: ACETAMINOPHEN TAB 325 MG TAB PO SCH ×4 (06:07→23:58)
[2023-08-12] MEDS: LACTATED RINGERS 1,000 ML IV SCH ×3 (06:09→22:21)
[2023-08-12] MEDS: HYDROcodone/APAP 5-325MG 1 EACH TAB PO PRN (06:11)
--- NOTE | 2023-08-12 07:34 | P.PN ---
Subjective Progress Note Date: 08/12/23 Patient is a 67-year-old male with hypertension, osteoarthritis and rheumatoid arthritis who presented for an elective occipital to T2 decompression and fusion due to C1-2 instability. He did well in the postoperative period and was monitored in the ICU overnight. Patient seen and examined at bedside. He was having some pain today. Denies any nausea or vomiting. Denies any significant chest pain or shortness of breath. Vital signs reviewed General: Nontoxic, no distress, appears at stated age Cardiovascular: S1S2 reg, no murmur, positive posterior tibial pulse bilateral, cervical collar in place Lungs: CTA bilateral, no rhonchi, no rales, no accessory muscle use Abdominal: Soft, nontender to palpation, no guarding, no appreciable organomegaly Ext: No gross muscle atrophy, no edema b/l lower extremities, no contractures Neuro: CN II-XI grossly intact, no focal neuro deficits Psych: Alert, oriented, appropriate affect Assessment/Plan: Patient is a 67 yo male status post occiput to T2 decompression Osteoarthritis Rheumatoid arthritis-currently not on any disease modifying drugs or Biologics Hyponatremia, likely related to fluid shifts and hydrochlorothiazide use at baseline -Increase lactated Ringer's to 75 cc/h. Repeat sodium level at 12 PM -Continue to hold hydrochlorothiazide 25 mg Acute blood loss anemia, anticipated outcome of surgery -No indication for transfusion -Follow CBC Hypertension -Patient's baseline blood pressures have been running 107 and 110 -Will continue to hold ARB, HCTZ on hold due to hyponatremia -Follow blood pressures Imaging: None new Data Review: Labs reviewed include CBC and basic metabolic profile which are remarkable for white blood cell count 11.9, hemoglobin 12, sodium 127 DVT prophylaxis: Per primary team Thank you for allowing us to participate in the care of this pleasant patient. Do not hesitate to contact us with questions. Someone can be reached from the [facility] hospitalist group all hours of the day at [phone] or via [employer]. This dictation was prepared using [employer] voice recognition software. Though every attempt is made to correct errors during dictation some may still exist. Objective - Vital Signs Vital signs: Vital Signs Temp 98.3 F 08/12/23 04:00 Pulse 80 08/12/23 07:00 Resp 11 L 08/12/23 07:00 BP 124/71 08/12/23 07:00 Pulse Ox 94 L 08/12/23 07:00 FiO2 Intake & Output 08/11/23 08/12/23 08/12/23 18:59 06:59 18:59 Intake Total 2180 650 20 Output Total 1390 881 66 Balance 790 -231 -46 Weight 104.6 kg 108.7 kg Intake: IV 1950 270 20 Lactated Ringers 1,000 ml 220 20 @ 20 mls/hr IV .Q24H YAJAIRA Rx#:[id number] ceFAZolin 2 gm In Sodium 50 Chloride 0.9% 50 ml @ 100 mls/hr IVPB Q8H YAJAIRA Rx#: [id number] Intake, IV Titration 110 20 Amount Lactated Ringers 1,000 ml 60 20 @ 20 mls/hr IV .Q24H YAJAIRA Rx#:[id number] ceFAZolin 2 gm In Sodium 50 Chloride 0.9% 50 ml @ 100 mls/hr IVPB Q8H YAJAIRA Rx#: [id number] Oral 120 360 Output: Drainage 90 Upper Posterior Neck 90 Urine 1200 881 66 Estimated Blood Loss 100 Other: Voiding Method Indwelling Catheter Indwelling Catheter ABP, PAP, CO, CI - Last Documented Arterial Blood Pressure 104/83 - Labs CBC & Chem 7: 08/12/23 03:45 08/12/23 03:45 Labs: Abnormal Lab Results - Last 24 Hours (Table) 08/11/23 08/12/23 08/12/23 Range/Units 16:10 03:45 03:45 WBC 11.9 H (3.8-10.6) k/uL RBC 3.80 L (4.30-5.90) m/uL Hgb 12.0 L (13.0-17.5) gm/dL Hct 35.6 L (39.0-53.0) % Neutrophils # 9.8 H (1.3-7.7) k/uL Sodium 127 L (137-145) mmol/L Chloride 93 L (98-107) mmol/L Creatinine 0.41 L (0.66-1.25) mg/dL Glucose 114 H (74-99) mg/dL POC Glucose (mg/dL) 121 H (70-110) mg/dL
[2023-08-12] MEDS: MULTIVITAMINS, THERA 1 EACH TAB PO SCH (08:14)
[2023-08-12] MEDS: GABAPENTIN 300 MG CAP PO SCH ×3 (08:14→21:23)
[2023-08-12] MEDS: CHOLECALCIFEROL 125 MCG (5000 IU) TABLET PO SCH (08:14)
[2023-08-12] MEDS: HYDROmorphone 0.5 MG/0.5 ML SYRINGE IVP PRN ×2 (08:15→23:59)
--- NOTE | 2023-08-12 09:12 | US ---
EXAMINATION TYPE: US carotid duplex BILAT DATE OF EXAM: 08/12/2023 COMPARISON: US 02/01/2020 CLINICAL INDICATION: Male, 67 years old with history of carotid artery stenosis; Current smoker; HTN; Recurring headaches/Neck pain TECHNIQUE: Carotid duplex ultrasound examination. Indirect Doppler criteria was utilized. FINDINGS: EXAM MEASUREMENTS: RIGHT: Peak Systolic Velocity (PSV) cm/sec ----- Right CCA: 67 ----- Right ICA: 85 ----- Right ECA: 132 ICA/CCA ratio: 1.3 RIGHT: End Diastole cm/sec ----- Right CCA: 10 ----- Right ICA: 26 ----- Right ECA: 13 LEFT: Peak Systolic Velocity (PSV) cm/sec ----- Left CCA: 67 ----- Left ICA: 110 ----- Left ECA: 157 ICA/CCA ratio: 1.6 LEFT: End Diastole cm/sec ----- Left CCA: 13 ----- Left ICA: 23 ----- Left ECA: 20 VERTEBRALS (direction of flow): Right Vertebral: Antegrade Left Vertebral: Antegrade Rhythm: Normal [employer] NOTES: Limited visualization of bilateral vertebrals. Unable to assess bilateral distal I CA due to patients position (scanned erect at 90 degrees), Plaque noted at left CCA Bulb extending in to proximal ICA. No intimal thickening noted. Elevated velocities within the bilateral ECAs. IMPRESSION: Less than 50% stenosis bilateral carotid bifurcations. Criteria for Assigning % of Stenosis / Diameter reduction (Estimation based on the indirect measurements of the internal carotid artery velocities (ICA PSV). 1. Normal (no stenosis)=ICA PSV < 125 cm/s: ratio < 2.0: ICA EDV<40 cm/s. 2. Less than 50% stenosis=ICA PSV < 125 cm/s: ratio < 2.0: ICA EDV<40 cm/s. 3. 50 to 69% stenosis=ICA PSV of 125 to 230 cm/s: ration 2.0 ? 4.0: ICA EDV 40-100 cm/s. 4. Greater than 70% stenosis to near occlusion= ICA PSV > 230 cm/s: ratio > 4.0: ICA EDV > 100 cm/s. 5. Near occlusion= ICA PSV velocities may be low or undetectable: variable ratio and ICA EDV. 6. Total occlusion=unable to detect flow.
--- NOTE | 2023-08-12 11:51 | P.PN ---
Subjective Progress Note Date: 08/12/23 Principal diagnosis: Status post elective occipital to T2 decompression and fusion, postoperative day #1 This is a pleasant 67-year-old male patient with a known history of rheumatoid spondylotic myelopathy with deformity and ongoing neck pain. He was brought in electively today and had undergone a posterior cervical decompression fusion occipital to T2 with nerve integrity monitoring. Based on the location of the surgery he was admitted to the intensive care unit for close monitoring overnight. He is currently resting comfortably in bed. Hard c-collar in place. He is maintaining good O2 saturations in the 90s on 2 L/m per nasal cannula. He's been afebrile. Hemodynamically stable. His been initiated on cefazolin. He has lactated Ringer's at 20 ML's per hour. He will receive [place] alternating with Dilaudid for pain control. Reevaluated today on 08/12/2023, patient remains in the ICU, he is postoperative day #1. Patient is doing well, he is on 2 L nasal cannula, not in any distress, he is receiving lactated Ringer's at 75 cc/h. Continues to have a cervical collar in place, CT of cervical spine done this morning showed recent right laminectomy and fusion from occipital to T2, prevertebral soft tissue swelling with patent airways, the radiologist raised the possibility of posterior focal hemorrhage or complex fluid collection with air bubbles at the level of C3-C4 level compressing the posterior aspect of the thecal sac. Clinically the patient is doing well, relatively asymptomatic. Patient is hemodynamically stable, he had about 120 cc of serosanguineous fluid from the Hemovac through the night. His CBC is relatively normal hemoglobin is 12 sodium is low at 127 renal profile is normal bicarb is normal Objective - Vital Signs Vital signs: Vital Signs Temp 98.8 F 08/12/23 08:00 Pulse 84 08/12/23 08:00 Resp 15 08/12/23 08:00 BP 121/67 08/12/23 08:00 Pulse Ox 94 L 08/12/23 08:00 FiO2 Intake & Output 08/11/23 08/12/23 08/12/23 18:59 06:59 18:59 Intake Total 2180 650 20 Output Total 1390 881 186 Balance 790 -231 -166 Weight 104.6 kg 108.7 kg Intake: IV 1950 270 20 Lactated Ringers 1,000 ml 220 20 @ 20 mls/hr IV .Q24H YAJAIRA Rx#:[id number] ceFAZolin 2 gm In Sodium 50 Chloride 0.9% 50 ml @ 100 mls/hr IVPB Q8H YAJAIRA Rx#: [id number] Intake, IV Titration 110 20 Amount Lactated Ringers 1,000 ml 60 20 @ 20 mls/hr IV .Q24H YAJAIRA Rx#:[id number] ceFAZolin 2 gm In Sodium 50 Chloride 0.9% 50 ml @ 100 mls/hr IVPB Q8H YAJAIRA Rx#: [id number] Oral 120 360 Output: Drainage 90 120 Upper Posterior Neck 90 120 Urine 1200 881 66 Estimated Blood Loss 100 Other: Voiding Method Indwelling Catheter Indwelling Catheter Indwelling Catheter ABP, PAP, CO, CI - Last Documented Arterial Blood Pressure 104/83 - Exam GENERAL EXAM: Alert, 7-year-old male patient, resting flat in bed, on 2 L nasal cannula, comfortable in no apparent distress. Cervical collar in place. HEAD: Normocephalic. EYES: Normal reaction of pupils, equal size. NOSE: Clear with pink turbinates. THROAT: No erythema or exudates. NECK: C- collar in place. No masses, no JVD. CHEST: No chest wall deformity. LUNGS: Equal air entry with no crackles, wheeze, rhonchi or dullness. CVS: S1 and S2 normal with no audible murmur, regular rhythm. ABDOMEN: No hepatosplenomegaly, normal bowel sounds, no guarding or rigidity. SKIN: No rashes CENTRAL NERVOUS SYSTEM: Alert and oriented x 3 no gross focal deficit EXTREMITIES: No clubbing edema or cyanosis - Labs CBC & Chem 7: 08/12/23 03:45 08/12/23 03:45 Labs: Abnormal Lab Results - Last 24 Hours (Table) 08/11/23 08/12/23 08/12/23 Range/Units 16:10 03:45 03:45 WBC 11.9 H (3.8-10.6) k/uL RBC 3.80 L (4.30-5.90) m/uL Hgb 12.0 L (13.0-17.5) gm/dL Hct 35.6 L (39.0-53.0) % Neutrophils # 9.8 H (1.3-7.7) k/uL Sodium 127 L (137-145) mmol/L Chloride 93 L (98-107) mmol/L Creatinine 0.41 L (0.66-1.25) mg/dL Glucose 114 H (74-99) mg/dL POC Glucose (mg/dL) 121 H (70-110) mg/dL Assessment and Plan Assessment: Impression: Status post occipital to T2 decompression postoperative day #1 Suspect hypovolemic hyponatremia, being addressed by admitting physician, patient is on lactated Ringer's at 75 cc/h, repeat sodium is pending patient is chronically on diuretics which is presently on hold/hydrochlorothiazide. Suspect underlying COPD, presently inactive Benign essential hypertension Chronic tobacco dependence Recommendation: Continue to monitor in ICU for now. Continue pain control management patient is on [place] and Dilaudid for pain control Continue cefazolin Incentive spirometry Surgery to address his abnormal CT of the cervical spine findings Will continue to follow Time with Patient: Less than 30
--- NOTE | 2023-08-12 12:00 | P.PN ---
Subjective Progress Note Date: 08/12/23 Principal diagnosis: Status post occipitalT2 decompression and fusion Patient was evaluated today at bedside, he is resting in the ICU. Patient's rigid c-collar is in good position and condition along with the posterior drain. He is having some discomfort he states but overall controlled with current meds. He was sitting up at the edge of the bed earlier, this did cause a lot of pressure across the back of his neck. He has been moving the upper and lower extremities with minimal difficulty. The urinary catheter remains in place at this time. He denies chest pain, shortness of breath, nausea or vomiting Objective - Vital Signs Vital signs: Vital Signs Temp 98.8 F 08/12/23 08:00 Pulse 84 08/12/23 08:00 Resp 15 08/12/23 08:00 BP 121/67 08/12/23 08:00 Pulse Ox 94 L 08/12/23 08:00 FiO2 Intake & Output 08/11/23 08/12/23 08/12/23 18:59 06:59 18:59 Intake Total 2180 650 20 Output Total 1390 881 186 Balance 790 -231 -166 Weight 104.6 kg 108.7 kg Intake: IV 1950 270 20 Lactated Ringers 1,000 ml 220 20 @ 20 mls/hr IV .Q24H [facility] Rx#:[id number] ceFAZolin 2 gm In Sodium 50 Chloride 0.9% 50 ml @ 100 mls/hr IVPB Q8H [facility] Rx#: [id number] Intake, IV Titration 110 20 Amount Lactated Ringers 1,000 ml 60 20 @ 20 mls/hr IV .Q24H [facility] Rx#:[id number] ceFAZolin 2 gm In Sodium 50 Chloride 0.9% 50 ml @ 100 mls/hr IVPB Q8H [facility] Rx#: [id number] Oral 120 360 Output: Drainage 90 120 Upper Posterior Neck 90 120 Urine 1200 881 66 Estimated Blood Loss 100 Other: Voiding Method Indwelling Catheter Indwelling Catheter Indwelling Catheter ABP, PAP, CO, CI - Last Documented Arterial Blood Pressure 104/83 - Exam Gen: AOx3, NAD VSS stable at this time Integument: Postoperative bandages in good position and condition, along with posterior drain, there is mild output noted Palpation: Mild tenderness to palpation noted to the posterior cervical spine ROM: Full range of motion in all major muscle groups of the bilateral upper extremities, no focal deficits Full range of motion in all major muscle groups of the bilateral lower extremities, he does demonstrate some slight weakness with hip flexion bilaterally along with knee extension and knee flexion, due to bed positioning Sensory Exam: Sensory exam to light touch throughout the bilateral upper and lower extremities are intact, no focal deficits Motor: 4/5 strength appreciated in the bilateral upper extremities with shoulder elevation, shoulder abduction, elbow extension, elbow flexion, wrist extension, wrist flexion, drip pumper 4/5 strength appreciated to bilateral lower extremities with hip flexion, knee extension, knee flexion, plantarflexion, dorsiflexion, EHL, FHL - Labs CBC & Chem 7: 08/12/23 03:45 08/12/23 03:45 Labs: Abnormal Lab Results - Last 24 Hours (Table) 08/11/23 08/12/23 08/12/23 Range/Units 16:10 03:45 03:45 WBC 11.9 H (3.8-10.6) k/uL RBC 3.80 L (4.30-5.90) m/uL Hgb 12.0 L (13.0-17.5) gm/dL Hct 35.6 L (39.0-53.0) % Neutrophils # 9.8 H (1.3-7.7) k/uL Sodium 127 L (137-145) mmol/L Chloride 93 L (98-107) mmol/L Creatinine 0.41 L (0.66-1.25) mg/dL Glucose 114 H (74-99) mg/dL POC Glucose (mg/dL) 121 H (70-110) mg/dL Assessment and Plan Assessment: Postoperative day #1 status post occipitalT2 posterior decompression and fusion Plan: Pain control, continue with current medications DVT prophylaxis, okay to begin heparin later today 5000 units every 12 Wound care, continue to monitor surgical dressing and drain. Will leave in place overnight, possibly remove on 08/13/2023 depending on output Maintain rigid c-collar at all times Encourage patient to attempt to work with therapy to get out of bed and into the chair, utilize walker at all times Pending patient's activity, discussed with nursing they can try to discontinue urinary catheter later today or a.m. of 08/13/2023 Medical recommendations appreciated Will continue to follow patient during hospital stay Time with Patient: Less than 30
[2023-08-12] MEDS: HYDROcodone/APAP 10-325MG 1 EACH TAB PO PRN ×2 (12:52→18:49)
[2023-08-12 13:18] LABS: African American GFR (CKD) >90 (>60 ml/min/1.73 sqM); Anion Gap 6 mmol/L; Blood Urea Nitrogen 10 mg/dL (9-20); Calcium 8.5 mg/dL (8.4-10.2); Carbon Dioxide 29 mmol/L (22-30); Chloride 94 mmol/L (98-107); Glucose 127 mg/dL (74-99); Non-African American GFR(CKD) >90 (>60 ml/min/1.73 sqM); Potassium 4.1 mmol/L (3.5-5.1); Sodium 129 mmol/L (137-145)
[2023-08-13 02:05] LABS: Basophils % (A) 0 %; Eosinophils # (A) 0.2 k/uL (0-0.7); Eosinophils % (A) 2 %; HCT 33.6 % (39.0-53.0); HGB 11.6 gm/dL (13.0-17.5); Lymphocytes # (A) 1.5 k/uL (1.0-4.8); Lymphocytes % (A) 12 %; MCH 32.1 pg (25.0-35.0); MCHC 34.4 g/dL (31.0-37.0); MCV 93.2 fL (80.0-100.0); Mean Platelet Volume 8.1; Monocytes # (A) 0.8 k/uL (0-1.0); Monocytes % (A) 6 %; Neutrophils # (A) 10.1 k/uL (1.3-7.7); Neutrophils % (A) 79 %; Platelet Count 254 k/uL (150-450); RDW 13.5 % (11.5-15.5); WBC 12.7 k/uL (3.8-10.6)
[2023-08-13] MEDS: HYDROcodone/APAP 10-325MG 1 EACH TAB PO PRN ×4 (02:08→15:43)
[2023-08-13 02:19] LABS: African American GFR (CKD) >90 (>60 ml/min/1.73 sqM); Anion Gap 5 mmol/L; Blood Urea Nitrogen 9 mg/dL (9-20); Calcium 8.3 mg/dL (8.4-10.2); Carbon Dioxide 27 mmol/L (22-30); Chloride 94 mmol/L (98-107); Glucose 111 mg/dL (74-99); Magnesium 1.8 mg/dL (1.6-2.3); Non-African American GFR(CKD) >90 (>60 ml/min/1.73 sqM); Potassium 3.8 mmol/L (3.5-5.1); Sodium 126 mmol/L (137-145)
[2023-08-13] MEDS ORDERED: Magnesium Replacement Protocol 1 EACH MISC MISCELLANE PRN (02:49)
[2023-08-13] MEDS ORDERED: Potassium Replacement Protocol 1 EACH MISC MISCELLANE PRN (02:49)
[2023-08-13] MEDS ORDERED: MAGNESIUM SULFATE-D5W PMX 1 GM in DEXTROSE/WATER 1 100ML.BAG IVPB ONE (02:49)
[2023-08-13] MEDS ORDERED: POTASSIUM CHLORIDE ER 20 MEQ TAB.ER PO SCH (03:00)
[2023-08-13] MEDS: ACETAMINOPHEN TAB 325 MG TAB PO SCH ×3 (06:51→18:04)
--- NOTE | 2023-08-13 07:40 | P.CRDCN ---
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 Cardiology consultation was requested because of an episode of atrial fibrillation. The patient has no history of cardiac disease, arrhythmia or CHF. He is not as active physically but denies any chest discomfort, significant dyspnea, dizziness or palpitations. He has a history of hypertension and smokes about a half a pack a day. He has no history of diabetes. He had a brief episode of atrial fibrillation that subsequently converted to sinus mechanism spontaneously. Hemodynamically he is stable. He has been maintained on Xarelto as an outpatient because of asymptomatic carotid disease by his previous primary care physician. A carotid duplex scan performed yesterday showed less than 50% stenosis. Medications: Xarelto 2.5 mg twice a day, telmisartan hydrochlorothiazide 80-25 mg daily, multivitamin, vitamin D Review of Systems: Respiratory: No recent wheezing or cough GI: No nausea or vomiting . No history of peptic ulcer disease. No recent GI bleed. : No hematuria or dysuria. Nervous System: No stroke or seizure. Physical Examination: 67-year-old male, alert oriented no apparent distress,Blood pressure 106/60, Heart rate 70 Head: Normocephalic. Eyes: Sclerae nonicteric. Neck: Cervical collar in place Lungs: Clear to auscultation. Heart: Regular rate and rhythm, S1-S2, no S3, no rub. No murmur. Abdomen: Soft nontender, positive bowel sounds no organomegaly. Extremities: No edema, intact distal pulses. Labs: Hemoglobin 11.6, creatinine 1.48, potassium 3.8, BUN 9. TSH 0.627, magnesium 1.8. EKG: Atrial fibrillation with nonspecific ST-T wave changes Impression: 1. Status post cervical decompression 2. 1 episode of paroxysmal atrial fibrillation, maintaining sinus mechanism 3. History of hypertension 4. Chronic tobacco use Plan: 1. Obtain an echocardiogram with Doppler 2. No indication for the dose of Xarelto he was on 3. If there is recurrent atrial fibrillation then would recommend full anticoagulation 4. Depending on his progress further recommendations will be made 5. Thank you for this consult we will follow with you Past Medical History Past Medical History: No Reported History Additional Past Medical History / Comment(s): Daily headaches. History of Any Multi-Drug Resistant Organisms: None Reported Past Surgical History: Orthopedic Surgery Additional Past Surgical History / Comment(s): KNEE ARTHROSCOPY Past Anesthesia/Blood Transfusion Reactions: No Reported Reaction Past Alcohol Use History: Heavy Additional Past Alcohol Use History / Comment(s): STARTED SMOKING AT AGE 16 - Past Family History Father Family Medical History: No Reported History Medications and Allergies Home Medications Medication Instructions Recorded Confirmed Type Cholecalciferol (Vitamin D3) 125 mcg PO DAILY 08/07/23 08/11/23 History [Vitamin D3 (125 MCG = 5,000 IU)] Glucosamine (Unknown Dose) 1 tab PO DAILY 08/07/23 08/11/23 History Multivitamins, Thera [Multivitamin 1 tab PO DAILY 08/07/23 08/11/23 History (formulary)] Rivaroxaban [Xarelto] 2.5 mg PO DAILY 08/07/23 08/11/23 History Telmisartan/Hydrochlorothiazid 1 each PO QAM 08/07/23 08/11/23 History [Telmisartan-Hctz 80-25 mg Tab] methocarbamoL 750 mg PO TID PRN 08/07/23 08/11/23 History Allergies Allergy/AdvReac Type Severity Reaction Status Date / Time No Known Allergies Allergy Verified 08/11/23 07:28 Physical Exam Vitals: Vital Signs Temp Pulse Pulse Resp BP Pulse Ox 08/13/23 07:00 77 10 L 106/64 93 L 08/13/23 06:00 80 9 L 110/65 92 L 08/13/23 05:00 80 9 L 104/65 93 L 08/13/23 04:00 98.1 F 77 10 L 105/59 93 L 08/13/23 03:00 87 11 L 123/79 93 L 08/13/23 02:00 92 14 116/62 94 L 08/13/23 01:00 93 12 123/65 93 L 08/13/23 00:23 102 H 14 93 L 08/13/23 00:00 98.1 F 87 13 108/67 93 L 08/12/23 23:00 84 9 L 131/73 92 L 08/12/23 22:00 93 10 L 119/68 91 L 08/12/23 21:00 98 10 L 125/70 93 L 08/12/23 20:00 98.2 F 82 13 110/72 94 L 08/12/23 19:00 82 12 123/70 93 L 08/12/23 18:00 86 14 127/73 93 L 08/12/23 17:00 82 14 114/65 93 L 08/12/23 16:00 98.6 F 73 9 L 125/70 93 L 08/12/23 15:00 84 12 123/70 92 L 08/12/23 14:00 82 11 L 122/70 94 L 08/12/23 13:00 85 12 119/63 94 L 08/12/23 12:00 98.8 F 85 10 L 109/66 93 L 08/12/23 11:00 80 10 L 127/73 93 L 08/12/23 10:00 85 13 114/65 96 08/12/23 09:00 74 6 L 130/74 91 L 08/12/23 08:00 98.8 F 102 H 84 15 121/67 94 L 08/12/23 07:36 95 Intake and Output 08/12/23 08/13/23 08/13/23 22:59 06:59 14:59 Intake Total 450 1900 Output Total 540 1270 Balance -90 630 Intake: IV 900 Lactated Ringers 1,000 ml 900 @ 75 mls/hr IV .[id number] [facility] Rx#:[id number] Intake, IV Titration 450 Amount Lactated Ringers 1,000 ml 450 @ 75 mls/hr IV .[id number] [facility] Rx#:[id number] Oral 1000 Output: Drainage 140 70 Upper Posterior Neck 140 70 Urine 400 1200 Other: Voiding Method Indwelling Catheter Results 08/13/23 01:54 08/13/23 01:54 CBC 08/13/23 Range/Units 01:54 WBC 12.7 H (3.8-10.6) k/uL RBC 3.60 L (4.30-5.90) m/uL Hgb 11.6 L (13.0-17.5) gm/dL Hct 33.6 L (39.0-53.0) % Plt Count 254 (150-450) k/uL Comprehensive Metabolic Panel 08/12/23 08/13/23 Range/Units 12:47 01:54 Sodium 129 L 126 L (137-145) mmol/L Potassium 4.1 3.8 (3.5-5.1) mmol/L Chloride 94 L 94 L (98-107) mmol/L Carbon Dioxide 29 27 (22-30) mmol/L BUN 10 9 (9-20) mg/dL Creatinine 0.53 L 0.48 L (0.66-1.25) mg/dL Glucose 127 H 111 H (74-99) mg/dL Calcium 8.5 8.3 L (8.4-10.2) mg/dL Current Medications Generic Name Dose Route Start Last Admin Trade Name Freq PRN Reason Stop Dose Admin Acetaminophen 650 mg 08/11/23 18:00 08/13/23 06:51 Acetaminophen Tab 325 Mg Tab PO Not Given Q6HR [facility] Hydrocodone Bitart/Acetaminophen 1 each 08/11/23 15:02 08/12/23 06:11 Hydrocodone/Apap 5-325mg 1 Each Tab PO 1 each Q6HR PRN Administration Pain Scale 4 - 6 Hydrocodone Bitart/Acetaminophen 1 each 08/11/23 15:02 08/13/23 06:52 Hydrocodone/Apap 10-325mg 1 Each Tab PO 1 each Q6H PRN Administration Pain Scale 7 - 10 Cholecalciferol 125 mcg 08/12/23 09:00 08/12/23 08:14 Cholecalciferol 125 Mcg (5000 Iu) Tablet PO 125 mcg DAILY [facility] Administration Gabapentin 300 mg 08/11/23 22:00 08/12/23 21:23 Gabapentin 300 Mg Cap PO 300 mg TID [facility] Administration Hydromorphone HCl 0.5 mg 08/11/23 15:02 08/12/23 23:59 Hydromorphone 0.5 Mg/0.5 Ml Syringe IVP 0.5 mg Q3HR PRN Administration Pain Scale 4 - 6 Hydromorphone HCl 1 mg 08/11/23 15:02 08/12/23 21:23 Hydromorphone 1 Mg/Ml 1 Ml Syringe IVP 1 mg Q3HR PRN Administration Pain Scale of 7 - 10 Lactated Ringer's 1,000 mls @ 75 mls/hr 08/12/23 07:45 08/12/23 22:21 Lactated Ringers IV 75 mls/hr .[id number] [facility] Administration Magnesium Hydroxide 2,400 mg 08/11/23 15:02 Magnesium Hydroxide 2,400 Mg/30 Ml Cup PO DAILY PRN Constipation Methocarbamol 750 mg 08/11/23 15:02 08/12/23 13:53 Methocarbamol 750 Mg Tab PO 750 mg TID PRN Administration Muscle Spasm Miscellaneous Information 1 each 08/13/23 02:49 Potassium Replacement Protocol 1 Each Misc MISCELLANE DAILY PRN Per Protocol Protocol Miscellaneous Information 1 each 08/13/23 02:49 Magnesium Replacement Protocol 1 Each Misc MISCELLANE DAILY PRN Per Protocol Protocol Multivitamins 1 each 08/12/23 09:00 08/12/23 08:14 Multivitamins, Thera 1 Each Tab PO 1 each DAILY [facility] Administration Naloxone HCl 0.2 mg 08/11/23 16:02 Naloxone 0.4 Mg/Ml 1 Ml Vial IV Q2M PRN Opioid Reversal Senna/Docusate Sodium 2 each 08/11/23 15:02 Sennosides-Docusate Sodium 1 Each Tab PO DAILY PRN Constipation Intake and Output 08/12/23 08/13/23 08/13/23 22:59 06:59 14:59 Intake Total 450 1900 Output Total 540 1270 Balance -90 630 Intake: IV 900 Lactated Ringers 1,000 ml 900 @ 75 mls/hr IV .[id number] [facility] Rx#:[id number] Intake, IV Titration 450 Amount Lactated Ringers 1,000 ml 450 @ 75 mls/hr IV .[id number] [facility] Rx#:[id number] Oral 1000 Output: Drainage 140 70 Upper Posterior Neck 140 70 Urine 400 1200 Other: Voiding Method Indwelling Catheter 08/13/23 01:54 08/13/23 01:54
--- NOTE | 2023-08-13 09:14 | P.PN ---
Subjective Progress Note Date: 08/13/23 Principal diagnosis: 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 Neck pain 4. subaxial subluxation 5. Basilar invagination Patient seen and examined this morning in ICU. Patient is resting comfortably in bed. He does report an increase in posterior cervical pressure when he attempts to change position or is sitting up for a period of time. Medications will be reviewed and adjusted. Surgical incision to the posterior cervical spine, dressing is CDI with hemovac present. Hard cervical collar intact. Patient denies any radiculopathy or numbness/tingling to the upper extremities. Patient reports that he did work with physical therapy yesterday and was able to sit in chair for a period of time. Continue to encourage patient to be up in chair with all meals and to use the incentive spirometer. Objective - Vital Signs Vital signs: Vital Signs Temp 98.1 F 08/13/23 04:00 Pulse 80 08/13/23 06:00 Resp 9 L 08/13/23 06:00 BP 110/65 08/13/23 06:00 Pulse Ox 92 L 08/13/23 06:00 FiO2 Intake & Output 08/12/23 08/13/23 08/13/23 18:59 06:59 18:59 Intake Total 845 1900 Output Total 976 1270 Balance -131 630 Intake: IV 20 900 Lactated Ringers 1,000 ml 20 @ 20 mls/hr IV .Q24H [facility] Rx#:[id number] Lactated Ringers 1,000 ml 900 @ 75 mls/hr IV .[id number] [facility] Rx#:[id number] Intake, IV Titration 825 Amount Lactated Ringers 1,000 ml 825 @ 75 mls/hr IV .[id number] [facility] Rx#:[id number] Oral 1000 Output: Drainage 260 70 Upper Posterior Neck 260 70 Urine 716 1200 Other: Voiding Method Indwelling Catheter Indwelling Catheter ABP, PAP, CO, CI - Last Documented Arterial Blood Pressure 104/83 - Exam Physical Examination General: The patient is awake and alert, in no acute distress Skin: Skin is warm and dry with no obvious rashes or lesions. surgical incision to the posterior cervical spine, dressing is clean dry and intact with Hemovac present with 70 mL output overnight. Eye: Pupils are equal, round and reactive to light, extra-ocular movements are intact; there is normal conjunctiva bilaterally. Neck: The neck is supple, there is moderate tenderness and limited range of motion due to surgical procedure and [place] hard collar in place. Cardiovascular: There is a regular rate and rhythm. No murmur, rub or gallop is appreciated. Respiratory: Lungs are clear to auscultation, respirations are non-labored, breath sounds are equal. Gastrointestinal: Soft, non-distended, non-tender abdomen. Back: There is no tenderness to palpation in the midline, paralumbar, parathoracic or buttocks region. There is no obvious deformity . Musculoskeletal: ROM limited secondary to pain and stiffness from surgical procedure. Muscle strength in all major muscle groups of bilateral upper extremities 4/5, bilateral lower extremities 5/5. Neurological: CN 2-12 intact. There are no obvious motor or sensory deficits. Movement and coordination equal and intact. Sensory exam to light touch intact C5-T1 and intact from L2-S1. Reflexes 2/4 in bilateral upper and lower extremities. Negative Hoffmans, babinski, and clonus signs. Psychiatric: Cooperative, appropriate mood & affect, normal judgment. - Labs CBC & Chem 7: 08/13/23 01:54 08/13/23 01:54 Labs: Abnormal Lab Results - Last 24 Hours (Table) 08/12/23 08/13/23 08/13/23 Range/Units 12:47 01:54 01:54 WBC 12.7 H (3.8-10.6) k/uL RBC 3.60 L (4.30-5.90) m/uL Hgb 11.6 L (13.0-17.5) gm/dL Hct 33.6 L (39.0-53.0) % Neutrophils # 10.1 H (1.3-7.7) k/uL Sodium 129 L 126 L (137-145) mmol/L Chloride 94 L 94 L (98-107) mmol/L Creatinine 0.53 L 0.48 L (0.66-1.25) mg/dL Glucose 127 H 111 H (74-99) mg/dL Calcium 8.3 L (8.4-10.2) mg/dL Assessment and Plan Assessment: Post-Op day 2: OccipitalT2 decompression and fusion 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 Neck pain 4. subaxial subluxation 5. Basilar invagination Plan: -Appreciate documentum consultant and team management. -Activity: Ambulate QID, OOB all meals, up and about, limit lifting bending twisting to less than 5 lbs. Use walker or cane if needed for stability. -Daily PT/OT, increase ambulation strength and balance. -Hard cervical collar at all times, may remove for showers. -Pain control: Adequate at this time -Meds: reviewed -GI ppx: senna, Miralax -DVT PPX: Heparin -Hygiene: Maintain dressing clean and dry. -Drains: Maintain for now. Continue to monitor and record output q shift. -Encourage IS 10x/hr -Dispo: Clinically pending *I reviewed and discussed this case with my attending Dr. Kumar, whom has reviewed this chart and films and is in agreement with assessment and plan of care as outlined above. I have personally seen and examined the patient, performed the documentation and the assessment and plan as written. Number of minutes spent on the visit: 20m.
[2023-08-13] MEDS ORDERED: TOLVAPTAN 15 MG TABLET PO ONE ×2 (09:23→17:00)
[2023-08-13] MEDS: MULTIVITAMINS, THERA 1 EACH TAB PO SCH (09:33)
[2023-08-13] MEDS: GABAPENTIN 300 MG CAP PO SCH ×3 (09:33→21:06)
[2023-08-13] MEDS ORDERED: DILTIAZEM DRIP BOLUS FROM BAG 1 MG SOLN IV STA (09:33)
[2023-08-13] MEDS: CHOLECALCIFEROL 125 MCG (5000 IU) TABLET PO SCH (09:34)
[2023-08-13] MEDS: SENNOSIDES-DOCUSATE SODIUM 1 EACH TAB PO SCH (09:36)
[2023-08-13] MEDS: DILTIAZEM 125 MG in SODIUM CHLORIDE 0.9% 100 ML IV SCH ×2 (09:46→21:06)
--- NOTE | 2023-08-13 10:04 | P.PN ---
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 Patient seen and examined at bedside. Overnight in the ICU, patient had episodes of paroxysmal atrial fibrillation. Cardiology evaluated the patient. Echocardiogram completed. Denies any chest pain, shortness of breath. He has been consuming A lot of water. Vital signs reviewed General: Nontoxic, no distress, appears at stated age Cardiovascular: S1S2 tachycardic, irregular, no murmur, positive posterior tib ial pulse bilateral, cervical collar in place Lungs: CTA bilateral, no rhonchi, no rales, no accessory muscle use Abdominal: Soft, nontender to palpation, no guarding, no appreciable organomegaly Ext: No gross muscle atrophy, no edema b/l lower extremities, no contractures Neuro: CN II-XI grossly intact, no focal neuro deficits Psych: Alert, oriented, appropriate affect Assessment/Plan: Patient is a 67 yo male status post occiput to T2 decompression Osteoarthritis Rheumatoid arthritis-currently not on any disease modifying drugs or Biologics -Pain management, bowel regimen per primary surgical team Hyponatremia, likely related to fluid shifts and hydrochlorothiazide use at baseline -Sodium was increasing however this morning sodium level is down again. -Patient did consume 1 L of fr water overnight -Continue to hold hydrochlorothiazide 25 mg -Start fluid restriction at 1500 mL -Discontinued lactated Ringer's -Repeat sodium this afternoon -Samsca x 1 per pulmonology, nephrology consulted Paroxysmal atrial fibrillation with RVR -Cardiology note reviewed, recommending full anticoagulation if recurrent atrial fibrillation -Echocardiogram pending -Started on Cardizem drip at 10 mg/h Acute blood loss anemia, anticipated outcome of surgery Leukocytosis, anticipated outcome of surgery -No active bleeding, repeat CBC tomorrow Hypertension -Will continue to hold ARB, HCTZ -Follow blood pressures Data Review: EKG independently interpreted, shows atrial fibrillation with RVR -WBC 12.7, hemoglobin 11.6, sodium 126, creatinine 0.48, TSH 0.627 Thank you for allowing us to participate in the care of this pleasant patient. Do not hesitate to contact us with questions. Someone can be reached from the [facility] hospitalist group all hours of the day at [phone] or via perfect serve. Objective - Vital Signs Vital signs: Vital Signs Temp 98.1 F 08/13/23 04:00 Pulse 137 H 08/13/23 09:15 Resp 23 08/13/23 09:15 BP 111/71 08/13/23 09:15 Pulse Ox 93 L 08/13/23 09:15 FiO2 Intake & Output 08/12/23 08/13/23 08/13/23 18:59 06:59 18:59 Intake Total 845 1900 Output Total 976 1270 Balance -131 630 Intake: IV 20 900 Lactated Ringers 1,000 ml 20 @ 20 mls/hr IV .Q24H [facility] Rx#:[id number] Lactated Ringers 1,000 ml 900 @ 75 mls/hr IV .[id number] [facility] Rx#:[id number] Intake, IV Titration 825 Amount Lactated Ringers 1,000 ml 825 @ 75 mls/hr IV .[id number] [facility] Rx#:[id number] Oral 1000 Output: Drainage 260 70 Upper Posterior Neck 260 70 Urine 716 1200 Other: Voiding Method Indwelling Catheter Indwelling Catheter ABP, PAP, CO, CI - Last Documented Arterial Blood Pressure 104/83 - Labs CBC & Chem 7: 08/13/23 01:54 08/13/23 01:54 Labs: Abnormal Lab Results - Last 24 Hours (Table) 08/12/23 08/13/23 08/13/23 Range/Units 12:47 01:54 01:54 WBC 12.7 H (3.8-10.6) k/uL RBC 3.60 L (4.30-5.90) m/uL Hgb 11.6 L (13.0-17.5) gm/dL Hct 33.6 L (39.0-53.0) % Neutrophils # 10.1 H (1.3-7.7) k/uL Sodium 129 L 126 L (137-145) mmol/L Chloride 94 L 94 L (98-107) mmol/L Creatinine 0.53 L 0.48 L (0.66-1.25) mg/dL Glucose 127 H 111 H (74-99) mg/dL Calcium 8.3 L (8.4-10.2) mg/dL
[2023-08-13] MEDS ORDERED: HEPARIN SODIUM 1,000 UN/ML (10ML VL) IV ONE (10:05)
[2023-08-13] MEDS: HEPARIN SOD,PORK IN 0.45% NACL 25,000 UNIT in 0.45% NACL 1 250ML.BAG IV SCH (10:33)
--- NOTE | 2023-08-13 11:21 | P.PN ---
Subjective Progress Note Date: 08/13/23 Principal diagnosis: Status post elective occipital to T2 decompression and fusion, postoperative day #2 This is a pleasant 67-year-old male patient with a known history of rheumatoid spondylotic myelopathy with deformity and ongoing neck pain. He was brought in electively today and had undergone a posterior cervical decompression fusion occipital to T2 with nerve integrity monitoring. Based on the location of the surgery he was admitted to the intensive care unit for close monitoring overnight. He is currently resting comfortably in bed. Hard c-collar in place. He is maintaining good O2 saturations in the 90s on 2 L/m per nasal cannula. He's been afebrile. Hemodynamically stable. His been initiated on cefazolin. He has lactated Ringer's at 20 ML's per hour. He will receive [place] alternating with Dilaudid for pain control. Reevaluated today on 08/12/2023, patient remains in the ICU, he is postoperative day #1. Patient is doing well, he is on 2 L nasal cannula, not in any distress, he is receiving lactated Ringer's at 75 cc/h. Continues to have a cervical collar in place, CT of cervical spine done this morning showed recent right laminectomy and fusion from occipital to T2, prevertebral soft tissue swelling with patent airways, the radiologist raised the possibility of posterior focal hemorrhage or complex fluid collection with air bubbles at the level of C3-C4 level compressing the posterior aspect of the thecal sac. Clinically the patient is doing well, relatively asymptomatic. Patient is hemodynamically stable, he had about 120 cc of serosanguineous fluid from the Hemovac through the night. His CBC is relatively normal hemoglobin is 12 sodium is low at 127 renal profile is normal bicarb is normal Patient was evaluated today on 08/13/2023, remains in the ICU, he is now postoperative day #2. Patient is relatively asymptomatic however he is in atrial fibrillation with RVR, seen by cardiology this morning, and his A-fib RVR is being addressed by cardiology. Patient has no pulmonary symptoms, no cough no wheezing or shortness of breath, he has some postoperative cervical pain, otherwise and no other symptoms. Labs were reviewed, WBC count is 12.7 hemoglobin 11.6, sodium is 126, it was as high as 129 yesterday. Renal profile is normal bicarb is normal. Clinically the patient is euvolemic. Could consider tolvaptan, however needed a nephrology clearance to use tolvaptan Objective - Vital Signs Vital signs: Vital Signs Temp 98.1 F 08/13/23 04:00 Pulse 142 H 08/13/23 11:00 Resp 12 08/13/23 11:00 BP 105/68 08/13/23 11:00 Pulse Ox 93 L 08/13/23 11:00 FiO2 Intake & Output 08/12/23 08/13/23 08/13/23 18:59 06:59 18:59 Intake Total 845 1900 Output Total 976 1270 Balance -131 630 Intake: IV 20 900 Lactated Ringers 1,000 ml 20 @ 20 mls/hr IV .Q24H [facility] Rx#:[id number] Lactated Ringers 1,000 ml 900 @ 75 mls/hr IV .[id number] [facility] Rx#:[id number] Intake, IV Titration 825 Amount Lactated Ringers 1,000 ml 825 @ 75 mls/hr IV .[id number] [facility] Rx#:[id number] Oral 1000 Output: Drainage 260 70 Upper Posterior Neck 260 70 Urine 716 1200 Other: Voiding Method Indwelling Catheter Indwelling Catheter ABP, PAP, CO, CI - Last Documented Arterial Blood Pressure 104/83 - Exam GENERAL EXAM: Alert, 67-year-old male patient, resting flat in bed, on 2 L nasal cannula, comfortable in no apparent distress. Cervical collar in place. HEAD: Normocephalic. EYES: Normal reaction of pupils, equal size. NOSE: Clear with pink turbinates. THROAT: No erythema or exudates. NECK: C- collar in place. No masses, no JVD. CHEST: No chest wall deformity. LUNGS: Equal air entry with no crackles, wheeze, rhonchi or dullness. CVS: Irregular irregular rhythm, tachycardic. S1 and S2 normal with no audible murmur, regular rhythm. ABDOMEN: No hepatosplenomegaly, normal bowel sounds, no guarding or rigidity. SKIN: No rashes CENTRAL NERVOUS SYSTEM: Alert and oriented x 3 no gross focal deficit EXTREMITIES: No clubbing edema or cyanosis - Labs CBC & Chem 7: 08/13/23 01:54 08/13/23 01:54 Labs: Abnormal Lab Results - Last 24 Hours (Table) 08/12/23 08/13/23 08/13/23 Range/Units 12:47 01:54 01:54 WBC 12.7 H (3.8-10.6) k/uL RBC 3.60 L (4.30-5.90) m/uL Hgb 11.6 L (13.0-17.5) gm/dL Hct 33.6 L (39.0-53.0) % Neutrophils # 10.1 H (1.3-7.7) k/uL Sodium 129 L 126 L (137-145) mmol/L Chloride 94 L 94 L (98-107) mmol/L Creatinine 0.53 L 0.48 L (0.66-1.25) mg/dL Glucose 127 H 111 H (74-99) mg/dL Calcium 8.3 L (8.4-10.2) mg/dL Assessment and Plan Assessment: Impression: Status post occipital to T2 decompression postoperative day #2 Paroxysmal atrial fibrillation Persistent hyponatremia, patient is euvolemic at this point clinically, being addressed by hospitalist Suspect underlying COPD, presently inactive Benign essential hypertension Chronic tobacco dependence Recommendation: Continue to monitor in ICU for now. Cardiology is addressing his atrial fibrillation with RVR Continue pain control management patient is on [place] and Dilaudid for pain control Incentive spirometry Consider nephrology consultation for persistent hyponatremia May have to consider fluid restriction or tolvaptan Will continue to follow Time with Patient: Less than 30
[2023-08-13] MEDS ORDERED: SODIUM CHLORIDE TAB 1 GM TAB PO STA (11:29)
--- NOTE | 2023-08-13 11:29 | CA ---
Transthoracic Echo Report Name: Dhaval Bah Age: 67 Gender: M : 1955 Exam Date: 08/13/2023 09:02 Exam Location: [facility] Ht (in): 70 Wt (lb): 239 Ordering Physician: Quiana Bland MD Attending/Referring Phys: [id number], Edwina [employer] Lynnette Phillip RD Procedure CPT: Indications: P. afib Cardiac Hx: Technical Quality: Fair Contrast 1: Total Dose (mL): Contrast 2: Total Dose (mL): MEASUREMENTS (Male / Female) Normal Values 2D ECHO LV Diastolic Diameter PLAX 5.2 cm 4.2 - 5.9 / 3.9 - 5.3 cm LV Systolic Diameter PLAX 3.7 cm IVS Diastolic Thickness 1.1 cm 0.6 - 1.0 / 0.6 - 0.9 cm LVPW Diastolic Thickness 1.0 cm 0.6 - 1.0 / 0.6 - 0.9 cm LV Relative Wall Thickness 0.4 RV Internal Dim ED PLAX 3.6 cm LVOT Diameter 2.3 cm Aortic Root Diameter 3.9 cm LA Systolic Diameter LX 2.5 cm 3.0 - 4.0 / 2.7 - 3.8 cm LV Diastolic Volume MOD 4C 55.9 cm??? LV Systolic Volume MOD 4C 33.0 cm??? LV Ejection Fraction MOD 4C 40.9 % LV Cardiac Index MOD 4C 836.9 cm???/min???m??? LV Diastolic Length 4C 6.9 cm LV Systolic Length 4C 6.5 cm LA Volume 66.4 cm??? 18 - 58 / 22 - 52 cm??? LA Volume Index 28.3 cm???/m??? 16 - 28 cm???/m??? DOPPLER AV Peak Velocity 142.2 cm/s AV Peak Gradient 8.1 mmHg LVOT Peak Velocity 137.1 cm/s LVOT Peak Gradient 7.5 mmHg LVOT Velocity Time Integral 23.2 cm LVOT Stroke Volume 95.3 cm??? LVOT Stroke Volume Index 42.3 ml/m??? LVOT Cardiac Index 3484.6 cm???/min???m??? AV Area Cont Eq pk 4.0 cm??? MV Peak Velocity 119.2 cm/s MV Peak Gradient 5.7 mmHg MV Mean Velocity 59.4 cm/s MV Mean Gradient 1.8 mmHg MV Velocity Time Integral 34.1 cm Mitral E Point Velocity 103.5 cm/s Mitral A Point Velocity 84.7 cm/s Mitral E to A Ratio 1.2 MV Deceleration Time 158.2 ms TR Peak Velocity 138.7 cm/s TR Peak Gradient 7.7 mmHg Right Ventricular Systolic Press 12.7 mmHg PV Peak Velocity 110.3 cm/s PV Peak Gradient 4.9 mmHg FINDINGS Left Ventricle Normal LV size and wall thickness. Left ventricular ejection fraction is estimated at 55-60 %. Right Ventricle Mild right ventricular dilatation. Right Atrium Normal right atrial size. Left Atrium Normal left atrial size. Mitral Valve Structurally normal mitral valve. Trace MR. Aortic Valve Aortic valve not well visualized. Grossly normal. No aortic valve stenosis or regurgitation. Tricuspid Valve Tricuspid valve not well visualized. Trace TR. Pulmonic Valve Pulmonic valve not well visualized. No pulmonic regurgitation. Pericardium Normal pericardium. Aorta AO root sita= 3.9cm CONCLUSIONS Normal LV systolic function No significant valvular abnormalities noted Dilated aortic root at 3.9 cm Previewed by: Dr. Chris Clemons MD (Electronically Signed) Final Date: 13 August 2023 11:28
[2023-08-13] MEDS ORDERED: SODIUM CHLORIDE 0.9% 500 ML 500 ML IV ONE (13:00)
[2023-08-13] MEDS ORDERED: DEXTROSE 5% IN WATER 100 ML with AMIODARONE 150 MG IV ONE (13:20)
[2023-08-13 13:27] LABS: African American GFR (CKD) >90 (>60 ml/min/1.73 sqM); Anion Gap 5 mmol/L; Blood Urea Nitrogen 7 mg/dL (9-20); Carbon Dioxide 26 mmol/L (22-30); Chloride 93 mmol/L (98-107); Glucose 103 mg/dL (74-99); Non-African American GFR(CKD) >90 (>60 ml/min/1.73 sqM); Potassium 3.9 mmol/L (3.5-5.1); Sodium 124 mmol/L (137-145)
[2023-08-13] MEDS ORDERED: AMIODARONE 360 MG in DEXTROSE 5% IN WATER 200 ML IV ONE ×2 (13:30)
[2023-08-13] MEDS: HEPARIN SODIUM 1,000 UN/ML (10ML VL) IV PRN (18:04)
[2023-08-13] MEDS ORDERED: AMIODARONE 450 MG in DEXTROSE 5% IN WATER 250 ML IV SCH ×2 (19:30)
--- NOTE | 2023-08-13 20:29 | P.NPCON ---
History of Present Illness - Reason for Consult hyponatremia - History of Present Illness Patient is a 67-year-old male status post elective C2 to thoracic spinal decompression and fusion, postop day # 2 Patient is noted to have hyponatremia. Serum sodium was 127 on admission and increased to 129 yesterday. However this morning it was 126 and then 124 mEq/L. Patient was maintained on Ringer lactate. He was on hydrochlorothiazide at home which has been held since admission. No significant nausea or vomiting. Fair control of pain Patient developed A-fib with RVR this morning and is maintained on Cardizem drip. Blood pressure has not been low. Previous sodium 133 on 07/23/2023 Review of Systems As per HPI Past Medical History Past Medical History: No Reported History Additional Past Medical History / Comment(s): Daily headaches. History of Any Multi-Drug Resistant Organisms: None Reported Past Surgical History: Orthopedic Surgery Additional Past Surgical History / Comment(s): KNEE ARTHROSCOPY Past Anesthesia/Blood Transfusion Reactions: No Reported Reaction Past Alcohol Use History: Heavy Additional Past Alcohol Use History / Comment(s): STARTED SMOKING AT AGE 16 - Past Family History Father Family Medical History: No Reported History Medications and Allergies Home Medications Medication Instructions Recorded Confirmed Type Cholecalciferol (Vitamin D3) 125 mcg PO DAILY 08/07/23 08/11/23 History [Vitamin D3 (125 MCG = 5,000 IU)] Glucosamine (Unknown Dose) 1 tab PO DAILY 08/07/23 08/11/23 History Multivitamins, Thera [Multivitamin 1 tab PO DAILY 08/07/23 08/11/23 History (formulary)] Rivaroxaban [Xarelto] 2.5 mg PO DAILY 08/07/23 08/11/23 History Telmisartan/Hydrochlorothiazid 1 each PO QAM 08/07/23 08/11/23 History [Telmisartan-Hctz 80-25 mg Tab] methocarbamoL 750 mg PO TID PRN 08/07/23 08/11/23 History Allergies Allergy/AdvReac Type Severity Reaction Status Date / Time No Known Allergies Allergy Verified 08/11/23 07:28 Physical Exam Vitals: Vital Signs Temp Pulse Pulse Pulse Resp BP BP 08/13/23 19:57 97.9 F 102 H 18 115/73 08/13/23 15:51 98.1 F 111 H 18 112/64 08/13/23 14:45 116 H 18 97/64 08/13/23 14:30 113 H 11 L 101/64 08/13/23 14:15 116 H 19 100/64 08/13/23 14:00 92 13 99/63 08/13/23 13:45 93 13 93/73 08/13/23 13:15 130 H 13 93/75 08/13/23 12:45 123 H 28 H 108/68 08/13/23 12:15 125 H 20 100/81 08/13/23 12:00 129 H 15 101/75 08/13/23 11:45 129 H 12 102/73 08/13/23 11:30 118 H 15 110/74 08/13/23 11:15 135 H 13 105/68 08/13/23 11:00 142 H 12 105/68 08/13/23 10:45 125 H 14 101/64 08/13/23 10:30 120 H 11 L 88/08/13/23 10:15 125 H 12 88/56 08/13/23 10:00 105 H 11 L 114/78 08/13/23 09:45 129 H 12 114/78 08/13/23 09:30 141 H 12 114/78 08/13/23 09:15 137 H 23 111/71 08/13/23 09:00 86 12 115/67 08/13/23 08:45 84 12 115/67 08/13/23 08:30 86 85 12 115/67 08/13/23 08:15 85 12 115/67 08/13/23 08:00 85 11 L 115/71 08/13/23 07:45 81 10 L 115/71 08/13/23 07:30 86 12 115/71 08/13/23 07:15 86 14 115/71 08/13/23 07:00 77 10 L 106/64 08/13/23 06:00 80 9 L 110/65 08/13/23 05:00 80 9 L 104/65 08/13/23 04:00 98.1 F 77 10 L 105/59 08/13/23 03:00 87 11 L 123/79 08/13/23 02:00 92 14 116/62 08/13/23 01:00 93 12 123/65 01/24/24 00:23 102 H 14 08/13/23 00:00 98.1 F 87 13 108/67 08/12/23 23:00 84 9 L 131/73 08/12/23 22:00 93 10 L 119/68 08/12/23 21:00 98 10 L 125/70 Pulse Ox 08/13/23 19:57 98 08/13/23 15:51 95 08/13/23 14:45 96 08/13/23 14:30 96 08/13/23 14:15 95 08/13/23 14:00 94 L 08/13/23 13:45 95 08/13/23 13:15 94 L 08/13/23 12:45 92 L 08/13/23 12:15 92 L 08/13/23 12:00 94 L 08/13/23 11:45 94 L 08/13/23 11:30 94 L 08/13/23 11:15 95 08/13/23 11:00 93 L 08/13/23 10:45 93 L 08/13/23 10:30 93 L 08/13/23 10:15 94 L 08/13/23 10:00 94 L 08/13/23 09:45 93 L 08/13/23 09:30 92 L 08/13/23 09:15 93 L 08/13/23 09:00 89 L 08/13/23 08:45 94 L 08/13/23 08:30 93 L 08/13/23 08:15 93 L 08/13/23 08:00 94 L 08/13/23 07:45 93 L 08/13/23 07:30 93 L 08/13/23 07:15 95 08/13/23 07:00 93 L 08/13/23 06:00 92 L 08/13/23 05:00 93 L 08/13/23 04:00 93 L 08/13/23 03:00 93 L 08/13/23 02:00 94 L 08/13/23 01:00 93 L 08/13/23 00:23 93 L 08/13/23 00:00 93 L 08/12/23 23:00 92 L 08/12/23 22:00 91 L 08/12/23 21:00 93 L Intake and Output 08/13/23 08/13/23 08/13/23 06:59 14:59 22:59 Intake Total 1900 1085.667 315.333 Output Total 1270 350 360 Balance 630 735.667 -44.667 Intake: IV 900 150 Lactated Ringers 1,000 ml 900 150 @ 75 mls/hr IV .[id number] [facility] Rx#:[id number] Intake, IV Titration 535.667 75.333 Amount Diltiazem 125 mg In 35.667 Sodium Chloride 0.9% 100 ml @ 10 MG/HR 10 mls/hr IV .[id number] [facility] Rx#: [id number] Heparin Sod,Pork in 0.45% 75.333 NaCl 25,000 unit In 0.45 % NaCl 1 250ml.bag @ 9.2 UNITS/KG/HR 10 mls/hr IV .Q24H [facility] Rx#:[id number] Sodium Chloride 0.9% 500 500 ml 500 ml @ 999 mls/hr IV .Q31M [facility] Rx#:[id number] Oral 1000 400 240 Output: Drainage 70 60 Upper Posterior Neck 70 60 Urine 1200 350 300 Other: Voiding Method Indwelling Catheter Patient is awake, comfortable, no acute distress HEENT cervical collar Alert oriented x 3 Examination of the heart S1 and S2 Examination of the lungs bilateral breath sounds are heard Abdomen is soft nontender Examination of the lower extremity shows no evidence of edema Results - Lab Results Most recent lab results Calcium 8.0 mg/dL (8.4-10.2) L 08/13/23 12:08 Magnesium 1.8 mg/dL (1.6-2.3) 08/13/23 01:54 08/13/23 01:54 08/13/23 15:00 Assessment and Plan Assessment: 1. Hyponatremia, currently euvolemic. Serum sodium worsened with IV fluids. High suspicion for underlying SIADH. Blood pressure was low this morning. Check urine sodium and urine osmolality. 2 g sodium chloride tabs x 1. Add Samsca based on urine osmolality and urine sodium. Patient was also maintained on hydrochlorothiazide prior to admission but it has been held. 2. Status post C-spine to thoracic spine decompression and fusion postop day 2 3. A-fib with RVR maintained on Cardizem drip. Patient was also on amiodarone which is based in D5W and can worsen the serum sodium. Plan: 2 g sodium chloride tabs x 1 Maintain fluid restriction. Check urine sodium and urine osmolality Continue off of IV fluids Continue off of hydrochlorothiazide Add Samsca based on urine osmolality and urine sodium. Thank you for the consultation. We will continue to follow the patient with you during his hospitalization.
[2023-08-13] MEDS: polyethylene glycoL 3350 17 GM POWD.PACK PO SCH (21:07)
[2023-08-14] MEDS: ACETAMINOPHEN TAB 325 MG TAB PO SCH ×5 (00:51→23:11)
[2023-08-14] MEDS: HEPARIN SODIUM 1,000 UN/ML (10ML VL) IV PRN (00:51)
[2023-08-14] MEDS: DILTIAZEM 125 MG in SODIUM CHLORIDE 0.9% 100 ML IV SCH (05:12)
[2023-08-14 07:51] LABS: Basophils % (A) 0 %; Eosinophils # (A) 0.2 k/uL (0-0.7); Eosinophils % (A) 1 %; HCT 33.8 % (39.0-53.0); HGB 11.3 gm/dL (13.0-17.5); Lymphocytes # (A) 1.7 k/uL (1.0-4.8); Lymphocytes % (A) 15 %; MCH 31.2 pg (25.0-35.0); MCHC 33.5 g/dL (31.0-37.0); MCV 93.1 fL (80.0-100.0); Mean Platelet Volume 8.2; Monocytes # (A) 0.8 k/uL (0-1.0); Monocytes % (A) 7 %; Neutrophils # (A) 8.6 k/uL (1.3-7.7); Neutrophils % (A) 75 %; Platelet Count 290 k/uL (150-450); RBC 3.63 m/uL (4.30-5.90); RDW 13.9 % (11.5-15.5); WBC 11.5 k/uL (3.8-10.6)
[2023-08-14] MEDS: HEPARIN SOD,PORK IN 0.45% NACL 25,000 UNIT in 0.45% NACL 1 250ML.BAG IV SCH (08:07)
[2023-08-14] MEDS: GABAPENTIN 300 MG CAP PO SCH ×3 (08:10→21:01)
[2023-08-14] MEDS: MULTIVITAMINS, THERA 1 EACH TAB PO SCH (08:10)
[2023-08-14] MEDS: SENNOSIDES-DOCUSATE SODIUM 1 EACH TAB PO SCH (08:10)
[2023-08-14] MEDS: CHOLECALCIFEROL 125 MCG (5000 IU) TABLET PO SCH (08:10)
[2023-08-14 08:26] LABS: African American GFR (CKD) >90 (>60 ml/min/1.73 sqM); Anion Gap 5 mmol/L; Blood Urea Nitrogen 8 mg/dL (9-20); Calcium 8.4 mg/dL (8.4-10.2); Carbon Dioxide 27 mmol/L (22-30); Chloride 101 mmol/L (98-107); Glucose 113 mg/dL (74-99); Non-African American GFR(CKD) >90 (>60 ml/min/1.73 sqM); Potassium 3.9 mmol/L (3.5-5.1); Sodium 133 mmol/L (137-145)
--- NOTE | 2023-08-14 11:17 | P.PN ---
Subjective Progress Note Date: 08/14/23 Principal diagnosis: 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 Neck pain 4. subaxial subluxation 5. Basilar invagination Patient seen and examined this morning. He has been transferred to the cardio stepdown unit on 3S. Patient is currently on Cardizem, Amiodorone, and Heparin drips r/t new onset of atrial fibrillation. Patient is resting comfortably in bed. He continues to report an increase in posterior cervical pressure when he attempts to change position or is sitting up for a period of time. He states his pain is managed on current regimen. Surgical incision to the posterior cervical spine, dressing is CDI with hemovac present, 40ml output over night. Hard cervical collar intact. Patient denies any radiculopathy or numbness/tingling to the upper extremities. Patient reports that he did work with physical therapy yesterday, although he states he did not get up much after that. Continue to enc ourage patient to be up in chair with all meals and to use the incentive spirometer. Objective - Vital Signs Vital signs: Vital Signs Temp 97.5 F L 08/14/23 08:04 Pulse 83 08/14/23 08:04 Resp 18 08/14/23 08:04 BP 108/76 08/14/23 08:04 Pulse Ox 97 08/14/23 08:31 FiO2 Intake & Output 08/13/23 08/14/23 08/14/23 18:59 06:59 18:59 Intake Total 1401.000 325.667 Output Total 710 3365 Balance 691.000 -3039.333 Weight 121 kg Intake: IV 150 Lactated Ringers 1,000 ml 150 @ 75 mls/hr IV .[id number] [facility] Rx#:[id number] Intake, IV Titration 611.000 325.667 Amount Diltiazem 125 mg In 35.667 151 Sodium Chloride 0.9% 100 ml @ 10 MG/HR 10 mls/hr IV .[id number] [facility] Rx#: [id number] Heparin Sod,Pork in 0.45% 75.333 174.667 NaCl 25,000 unit In 0.45 % NaCl 1 250ml.bag @ 9.2 UNITS/KG/HR 10 mls/hr IV .Q24H [facility] Rx#:[id number] Sodium Chloride 0.9% 500 500 ml 500 ml @ 999 mls/hr IV .Q31M [facility] Rx#:[id number] Oral 640 Output: Drainage 60 40 Upper Posterior Neck 60 40 Urine 650 3325 Other: Voiding Method Indwelling Catheter Urinal ABP, PAP, CO, CI - Last Documented Arterial Blood Pressure 104/83 - Exam Physical Examination General: The patient is awake and alert, in no acute distress Skin: Skin is warm and dry with no obvious rashes or lesions. Surgical incision to the posterior cervical spine, dressing is clean dry and intact with Hemovac present with 40 mL output overnight. Eye: Pupils are equal, round and reactive to light, extra-ocular movements are intact; there is normal conjunctiva bilaterally. Neck: The neck is supple, there is moderate tenderness and limited range of motion due to surgical procedure and Williams hard collar in place. Cardiovascular: There is a regular rate and rhythm. No murmur, rub or gallop is appreciated. Respiratory: Lungs are clear to auscultation, respirations are non-labored, breath sounds are equal. Gastrointestinal: Soft, non-distended, non-tender abdomen. Back: There is no tenderness to palpation in the midline, paralumbar, parathoracic or buttocks region. There is no obvious deformity . Musculoskeletal: ROM limited secondary to pain and stiffness from surgical procedure. Muscle strength in all major muscle groups of bilateral upper extremities 4/5, bilateral lower extremities 5/5. Neurological: CN 2-12 intact. There are no obvious motor or sensory deficits. Movement and coordination equal and intact. Sensory exam to light touch intact C5-T1 and intact from L2-S1. Reflexes 2/4 in bilateral upper and lower extremities. Negative Hoffmans, babinski, and clonus signs. Psychiatric: Cooperative, appropriate mood & affect, normal judgment. - Labs CBC & Chem 7: 08/14/23 07:00 08/14/23 07:00 Labs: Abnormal Lab Results - Last 24 Hours (Table) 08/13/23 08/13/23 08/13/23 Range/Units 12:08 15:00 23:13 WBC (3.8-10.6) k/uL RBC (4.30-5.90) m/uL Hgb (13.0-17.5) gm/dL Hct (39.0-53.0) % Neutrophils # (1.3-7.7) k/uL APTT (22.0-30.0) sec Sodium 124 L 124 L 132 L (137-145) mmol/L Chloride 93 L (98-107) mmol/L BUN 7 L (9-20) mg/dL Creatinine 0.44 L (0.66-1.25) mg/dL Glucose 103 H (74-99) mg/dL Calcium 8.0 L (8.4-10.2) mg/dL 08/13/23 08/14/23 08/14/23 Range/Units 23:50 07:00 07:00 WBC 11.5 H (3.8-10.6) k/uL RBC 3.63 L (4.30-5.90) m/uL Hgb 11.3 L (13.0-17.5) gm/dL Hct 33.8 L (39.0-53.0) % Neutrophils # 8.6 H (1.3-7.7) k/uL APTT 30.9 H (22.0-30.0) sec Sodium 133 L (137-145) mmol/L Chloride (98-107) mmol/L BUN 8 L (9-20) mg/dL Creatinine 0.43 L (0.66-1.25) mg/dL Glucose 113 H (74-99) mg/dL Calcium (8.4-10.2) mg/dL Assessment and Plan Assessment: Post-Op day 3: OccipitalT2 decompression and fusion 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 Neck pain 4. subaxial subluxation 5. Basilar invagination Plan: -Appreciate planning consultant and team management. -Activity: Ambulate QID, OOB all meals, up and about, limit lifting bending twisting to less than 5 lbs. Use walker or cane if needed for stability. -Daily PT/OT, increase ambulation strength and balance. -Hard cervical collar at all times, may remove for showers. -Pain control: Adequate at this time -Meds: reviewed -GI ppx: senna, Miralax -DVT PPX: Heparin -Hygiene: Maintain dressing clean and dry. -Drains: Maintain for now. Continue to monitor and record output q shift. -Encourage IS 10x/hr -Dispo: Clinically pending *I reviewed and discussed this case with my attending Dr. Kumar, whom has reviewed this chart and films and is in agreement with assessment and plan of care as outlined above. I have personally seen and examined the patient, performed the documentation and the assessment and plan as written. Number of minutes spent on the visit: 20m.
--- NOTE | 2023-08-14 11:34 | P.PN ---
Subjective Patient is seen for follow-up for hyponatremia. Serum sodium had worsened with Ringer lactate which was eventually discontinued. Blood pressure had been on the lower side yesterday and patient received 2 g of sodium chloride tab. Serum sodium did not improve and therefore he received Samsca 15 mg yesterday. Serum sodium has increased to 132 and 133 today. No significant complaints. Urine osmolality is pending. Random urine sodium was 121. Objective - Vital Signs Vital signs: Vital Signs Temp 97.5 F L 08/14/23 08:04 Pulse 83 08/14/23 08:04 Resp 18 08/14/23 08:04 BP 108/76 08/14/23 08:04 Pulse Ox 97 08/14/23 08:31 FiO2 Intake & Output 08/13/23 08/14/23 08/14/23 18:59 06:59 18:59 Intake Total 1401.000 325.667 118 Output Total 710 3365 350 Balance 691.000 -3039.333 -232 Weight 121 kg Intake: IV 150 Lactated Ringers 1,000 ml 150 @ 75 mls/hr IV .[id number] [facility] Rx#:[id number] Intake, IV Titration 611.000 325.667 Amount Diltiazem 125 mg In 35.667 151 Sodium Chloride 0.9% 100 ml @ 10 MG/HR 10 mls/hr IV .[id number] [facility] Rx#: [id number] Heparin Sod,Pork in 0.45% 75.333 174.667 NaCl 25,000 unit In 0.45 % NaCl 1 250ml.bag @ 9.2 UNITS/KG/HR 10 mls/hr IV .Q24H [facility] Rx#:[id number] Sodium Chloride 0.9% 500 500 ml 500 ml @ 999 mls/hr IV .Q31M [facility] Rx#:[id number] Oral 640 118 Output: Drainage 60 40 Upper Posterior Neck 60 40 Urine 650 3325 350 Other: Voiding Method Indwelling Catheter Urinal Urinal ABP, PAP, CO, CI - Last Documented Arterial Blood Pressure 104/83 - Exam Patient is awake, comfortable, no acute distress HEENT cervical collar Alert oriented x 3 Examination of the heart S1 and S2 Examination of the lungs bilateral breath sounds are heard Abdomen is soft nontender Examination of the lower extremity shows no evidence of edema - Labs CBC & Chem 7: 08/14/23 07:00 08/14/23 07:00 Labs: Abnormal Lab Results - Last 24 Hours (Table) 08/13/23 08/13/23 08/13/23 Range/Units 12:08 15:00 23:13 WBC (3.8-10.6) k/uL RBC (4.30-5.90) m/uL Hgb (13.0-17.5) gm/dL Hct (39.0-53.0) % Neutrophils # (1.3-7.7) k/uL APTT (22.0-30.0) sec Sodium 124 L 124 L 132 L (137-145) mmol/L Chloride 93 L (98-107) mmol/L BUN 7 L (9-20) mg/dL Creatinine 0.44 L (0.66-1.25) mg/dL Glucose 103 H (74-99) mg/dL Calcium 8.0 L (8.4-10.2) mg/dL 08/13/23 08/14/23 08/14/23 Range/Units 23:50 07:00 07:00 WBC 11.5 H (3.8-10.6) k/uL RBC 3.63 L (4.30-5.90) m/uL Hgb 11.3 L (13.0-17.5) gm/dL Hct 33.8 L (39.0-53.0) % Neutrophils # 8.6 H (1.3-7.7) k/uL APTT 30.9 H (22.0-30.0) sec Sodium 133 L (137-145) mmol/L Chloride (98-107) mmol/L BUN 8 L (9-20) mg/dL Creatinine 0.43 L (0.66-1.25) mg/dL Glucose 113 H (74-99) mg/dL Calcium (8.4-10.2) mg/dL Assessment and Plan Assessment: 1. Hyponatremia, currently euvolemic. Serum sodium worsened with IV fluids. Blood pressure was low and patient received 2 g of sodium chloride tab with no improvement in sodium. He eventually received Samsca 15 mg last night and sodium improved to 132. It is 133 today. Patient was also maintained on hydrochlorothiazide prior to admission but it has been held. 2. Status post C-spine to thoracic spine decompression and fusion postop day 2 3. A-fib with RVR maintained on Cardizem drip. Patient was also on amiodarone which is based in D5W and can worsen the serum sodium. Plan: DC fluid restriction Continue off of IV fluids Repeat labs in a.m. Continue off of hydrochlorothiazide Pain control.
--- NOTE | 2023-08-14 11:40 | P.PN ---
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 Cardiology consultation was requested because of an episode of atrial fibrillation. The patient has no history of cardiac disease, arrhythmia or CHF. He is not as active physically but denies any chest discomfort, significant dyspnea, dizziness or palpitations. He has a history of hypertension and smokes about a half a pack a day. He has no history of diabetes. He had a brief episode of atrial fibrillation that subsequently c onverted to sinus mechanism spontaneously. Hemodynamically he is stable. He has been maintained on Xarelto as an outpatient because of asymptomatic carotid disease by his previous primary care physician. A carotid duplex scan performed yesterday showed less than 50% stenosis. Medications: Xarelto 2.5 mg twice a day, telmisartan hydrochlorothiazide 80-25 mg daily, multivitamin, vitamin D 08/14/2023 Patient examined this morning at the bedside. Patient currently denies chest pain or pressure. He denies shortness of breath. He remains in atrial fibrillation with controlled ventricular rate. He remains on IV Cardizem at 10 mg an hour, IV amiodarone at 0.5 milligrams per minute. Vital signs are stable. Echocardiogram completed revealing normal LV systolic function with an ejection fraction of 55 to 60%, and trace MR, trace TR. PHYSICAL EXAM: VITAL SIGNS: Reviewed. GENERAL: Well-developed in no acute distress. NECK: Supple. No JVD or thyromegaly. Cervical collar noted. LUNGS: Respirations even and unlabored. Lungs essentially clear to auscultation bilaterally. HEART: Irregular rate and rhythm. S1 and S2 heard. EXTREMITIES: Normal range of motion. No clubbing or cyanosis. Peripheral pulses intact. No lower extremity edema ASSESSMENT: 1. Status post cervical decompression 2. Paroxysmal atrial fibrillation with controlled ventricular rate 3. History of hypertension 4. Chronic tobacco use PLAN: Discontinue IV heparin, IV amiodarone, and IV Cardizem Begin oral amiodarone 400 mg twice a day Begin oral Cardizem 60 mg 3 times a day Begin Eliquis 5 mg twice a day Continue telemetry monitoring Further recommendations pending patient course Nurse practitioner note has been reviewed by physician. Signing provider agrees with the documented findings, assessment, and plan of care documented by MANTEL CRAFTSMAN as a scribe. Objective - Vital Signs Vital signs: Vital Signs Temp 97.5 F L 08/14/23 08:04 Pulse 83 08/14/23 08:04 Resp 18 08/14/23 08:04 BP 108/76 08/14/23 08:04 Pulse Ox 97 08/14/23 08:31 FiO2 Intake & Output 08/13/23 08/14/23 08/14/23 18:59 06:59 18:59 Intake Total 1401.000 325.667 118 Output Total 710 3365 350 Balance 691.000 -3039.333 -232 Weight 121 kg Intake: IV 150 Lactated Ringers 1,000 ml 150 @ 75 mls/hr IV .[id number] [facility] Rx#:[id number] Intake, IV Titration 611.000 325.667 Amount Diltiazem 125 mg In 35.667 151 Sodium Chloride 0.9% 100 ml @ 10 MG/HR 10 mls/hr IV .[id number] [facility] Rx#: [id number] Heparin Sod,Pork in 0.45% 75.333 174.667 NaCl 25,000 unit In 0.45 % NaCl 1 250ml.bag @ 9.2 UNITS/KG/HR 10 mls/hr IV .Q24H [facility] Rx#:[id number] Sodium Chloride 0.9% 500 500 ml 500 ml @ 999 mls/hr IV .Q31M [facility] Rx#:[id number] Oral 640 118 Output: Drainage 60 40 Upper Posterior Neck 60 40 Urine 650 3325 350 Other: Voiding Method Indwelling Catheter Urinal Urinal ABP, PAP, CO, CI - Last Documented Arterial Blood Pressure 104/83 - Labs CBC & Chem 7: 08/14/23 07:00 08/14/23 07:00 Labs: Abnormal Lab Results - Last 24 Hours (Table) 08/13/23 08/13/23 08/13/23 Range/Units 12:08 15:00 23:13 WBC (3.8-10.6) k/uL RBC (4.30-5.90) m/uL Hgb (13.0-17.5) gm/dL Hct (39.0-53.0) % Neutrophils # (1.3-7.7) k/uL APTT (22.0-30.0) sec Sodium 124 L 124 L 132 L (137-145) mmol/L Chloride 93 L (98-107) mmol/L BUN 7 L (9-20) mg/dL Creatinine 0.44 L (0.66-1.25) mg/dL Glucose 103 H (74-99) mg/dL Calcium 8.0 L (8.4-10.2) mg/dL 08/13/23 08/14/23 08/14/23 Range/Units 23:50 07:00 07:00 WBC 11.5 H (3.8-10.6) k/uL RBC 3.63 L (4.30-5.90) m/uL Hgb 11.3 L (13.0-17.5) gm/dL Hct 33.8 L (39.0-53.0) % Neutrophils # 8.6 H (1.3-7.7) k/uL APTT 30.9 H (22.0-30.0) sec Sodium 133 L (137-145) mmol/L Chloride (98-107) mmol/L BUN 8 L (9-20) mg/dL Creatinine 0.43 L (0.66-1.25) mg/dL Glucose 113 H (74-99) mg/dL Calcium (8.4-10.2) mg/dL
[2023-08-14] MEDS: APIXABAN 5 MG TAB PO SCH ×2 (11:54→21:01)
[2023-08-14] MEDS: HYDROcodone/APAP 10-325MG 1 EACH TAB PO PRN (11:55)
[2023-08-14] MEDS: AMIODARONE 200 MG TAB PO SCH ×2 (11:55→21:01)
[2023-08-14] MEDS: DILTIAZEM ORAL 60 MG TAB PO SCH ×3 (11:55→21:02)
[2023-08-14 12:27] LABS: Glucose,Whole Blood 139 mg/dL (70-110)
--- NOTE | 2023-08-14 13:59 | P.PN ---
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 Patient seen and examined at bedside. Denies any chest pain, shortness of breath, abdominal pain, nausea, vomiting, urinary or bowel complaints. Vital signs reviewed General: Nontoxic, no distress, appears at stated age Cardiovascular: S1S2, irregular, no murmur, positive posterior tibial pulse bilateral, cervical collar in place Lungs: CTA bilateral, no rhonchi, no rales, no accessory muscle use Abdominal: Soft, nontender to palpation, no guarding, no appreciable organomegaly Ext: No gross muscle atrophy, no edema b/l lower extremities, no contractures Neuro: CN II-XI grossly intact, no focal neuro deficits Psych: Alert, oriented, appropriate affect Assessment/Plan: Patient is a 67 yo male status post occiput to T2 decompression Osteoarthritis Rheumatoid arthritis-currently not on any disease modifying drugs or Biologics -Pain management, and bowel regimen per primary surgical team Hyponatremia, euvolemic, resolving -Nephrology note reviewed, discontinued fluid restriction, continue off of IV fluids, repeat BMP tomorrow -Continue to hold hydrochlorothiazide 25 mg Paroxysmal atrial fibrillation with RVR, now rate controlled -Cardiology note reviewed, discontinue IV heparin and, IV amiodarone, IV Cardizem, started on oral amiodarone 400 twice daily, oral Cardizem 60 3 times daily, Eliquis 5 twice daily -Echocardiogram showed normal LV systolic function, dilated aortic root at 3.9 cm Acute blood loss anemia, anticipated outcome of surgery Leukocytosis, anticipated outcome of surgery -No active bleeding, repeat CBC tomorrow Hypertension -Will continue to hold ARB, HCTZ -Follow blood pressures Data Review: EKG independently interpreted, shows atrial fibrillation but rate controlled -WBC 11.5, hemoglobin 11.3, sodium 133, creatinine 0.43, blood glucose range between 1 13-1 39 Thank you for allowing us to participate in the care of this pleasant patient. Do not hesitate to contact us with questions. Someone can be reached from the [facility]Note 3] hospitalist group all hours of the day at [phone] or via perfect serve. Objective - Vital Signs Vital signs: Vital Signs Temp 98.7 F 08/14/23 11:31 Pulse 96 08/14/23 13:33 Resp 16 08/14/23 13:33 BP 106/69 08/14/23 11:31 Pulse Ox 100 08/14/23 11:31 FiO2 Intake & Output 08/13/23 08/14/23 08/14/23 18:59 06:59 18:59 Intake Total 1401.000 325.667 118 Output Total 710 3365 350 Balance 691.000 -3039.333 -232 Weight 121 kg Intake: IV 150 Lactated Ringers 1,000 ml 150 @ 75 mls/hr IV .[id number] [facility] Rx#:[id number] Intake, IV Titration 611.000 325.667 Amount Diltiazem 125 mg In 35.667 151 Sodium Chloride 0.9% 100 ml @ 10 MG/HR 10 mls/hr IV .[id number] [facility] Rx#: [id number] Heparin Sod,Pork in 0.45% 75.333 174.667 NaCl 25,000 unit In 0.45 % NaCl 1 250ml.bag @ 9.2 UNITS/KG/HR 10 mls/hr IV .Q24H [facility] Rx#:[id number] Sodium Chloride 0.9% 500 500 ml 500 ml @ 999 mls/hr IV .Q31M [facility] Rx#:[id number] Oral 640 118 Output: Drainage 60 40 Upper Posterior Neck 60 40 Urine 650 3325 350 Other: Voiding Method Indwelling Catheter Urinal Urinal ABP, PAP, CO, CI - Last Documented Arterial Blood Pressure 104/83 - Labs CBC & Chem 7: 08/14/23 07:00 08/14/23 07:00 Labs: Abnormal Lab Results - Last 24 Hours (Table) 08/13/23 08/13/23 08/13/23 Range/Units 15:00 23:13 23:50 WBC (3.8-10.6) k/uL RBC (4.30-5.90) m/uL Hgb (13.0-17.5) gm/dL Hct (39.0-53.0) % Neutrophils # (1.3-7.7) k/uL APTT 30.9 H (22.0-30.0) sec Sodium 124 L 132 L (137-145) mmol/L BUN (9-20) mg/dL Creatinine (0.66-1.25) mg/dL Glucose (74-99) mg/dL POC Glucose (mg/dL) (70-110) mg/dL 08/14/23 08/14/23 08/14/23 Range/Units 07:00 07:00 12:26 WBC 11.5 H (3.8-10.6) k/uL RBC 3.63 L (4.30-5.90) m/uL Hgb 11.3 L (13.0-17.5) gm/dL Hct 33.8 L (39.0-53.0) % Neutrophils # 8.6 H (1.3-7.7) k/uL APTT (22.0-30.0) sec Sodium 133 L (137-145) mmol/L BUN 8 L (9-20) mg/dL Creatinine 0.43 L (0.66-1.25) mg/dL Glucose 113 H (74-99) mg/dL POC Glucose (mg/dL) 139 H (70-110) mg/dL
--- NOTE | 2023-08-14 16:52 | P.PN ---
Subjective Progress Note Date: 08/14/23 This is a pleasant 67-year-old male patient with a known history of rheumatoid spondylotic myelopathy with deformity and ongoing neck pain. He was brought in electively today and had undergone a posterior cervical decompression fusion occipital to T2 with nerve integrity monitoring. Based on the location of the surgery he was admitted to the intensive care unit for close monitoring overnight. He is currently resting comfortably in bed. Hard c-collar in place. He is maintaining good O2 saturations in the 90s on 2 L/m per nasal cannula. He's been afebrile. Hemodynamically stable. His been initiated on cefazolin. He has lactated Ringer's at 20 ML's per hour. He will receive [place] alternating with Dilaudid for pain control. Reevaluated today on 08/12/2023, patient remains in the ICU, he is postoperative day #1. Patient is doing well, he is on 2 L nasal cannula, not in any distress, he is receiving lactated Ringer's at 75 cc/h. Continues to have a cervical collar in place, CT of cervical spine done this morning showed recent right laminectomy and fusion from occipital to T2, prevertebral soft tissue swelling with patent airways, the radiologist raised the possibility of posterior focal hemorrhage or complex fluid collection with air bubbles at the level of C3-C4 level compressing the posterior aspect of the thecal sac. Clinically the patient is doing well, relatively asymptomatic. Patient is hemodynamically stable, he had about 120 cc of serosanguineous fluid from the Hemovac through the night. His CBC is relatively normal hemoglobin is 12 sodium is low at 127 renal profile is normal bicarb is normal Patient was evaluated today on 08/13/2023, remains in the ICU, he is now postoperative day #2. Patient is relatively asymptomatic however he is in atrial fibrillation with RVR, seen by cardiology this morning, and his A-fib RVR is being addressed by cardiology. Patient has no pulmonary symptoms, no cough no wheezing or shortness of breath, he has some postoperative cervical pain, otherwise and no other symptoms. Labs were reviewed, WBC count is 12.7 hemoglobin 11.6, sodium is 126, it was as high as 129 yesterday. Renal profile is normal bicarb is normal. Clinically the patient is euvolemic. Could consider tolvaptan, however needed a nephrology clearance to use tolvaptan The patient is seen today August 14, 2023 in follow-up on the selective care unit. He is currently resting in bed. Awake and alert in no acute distress. This is postoperative day #3. He was still having issues with atrial fibrillation and rapid ventricular response currently his heart rate is in the 90s. He remains on a heparin drip per weight-based protocol. Cardizem drip at 10 mg an hour and amiodarone drip at 0.5 mg/min. White count 11.5. Hemoglobin 11.3. Platelets 290. Sodium 133. Potassium 3.9. Bicarb 27. BUN 8. Creatinine 0.43. Glucose 113. He continues to work well with the incentive spirometer. He is maintaining O2 saturations up to 100% on 2 L/min per nasal cannula. Afebrile. Objective - Vital Signs Vital signs: Vital Signs Temp 99.4 F 08/14/23 15:43 Pulse 90 08/14/23 15:43 Resp 16 08/14/23 15:43 BP 105/69 08/14/23 15:43 Pulse Ox 98 08/14/23 15:43 FiO2 Intake & Output 08/13/23 08/14/23 08/14/23 18:59 06:59 18:59 Intake Total 1401.000 325.667 118 Output Total 710 3365 800 Balance 691.000 -3039.333 -682 Weight 121 kg Intake: IV 150 Lactated Ringers 1,000 ml 150 @ 75 mls/hr IV .[id number] [facility] Rx#:[id number] Intake, IV Titration 611.000 325.667 Amount Diltiazem 125 mg In 35.667 151 Sodium Chloride 0.9% 100 ml @ 10 MG/HR 10 mls/hr IV .[id number] [facility] Rx#: [id number] Heparin Sod,Pork in 0.45% 75.333 174.667 NaCl 25,000 unit In 0.45 % NaCl 1 250ml.bag @ 9.2 UNITS/KG/HR 10 mls/hr IV .Q24H [facility] Rx#:[id number] Sodium Chloride 0.9% 500 500 ml 500 ml @ 999 mls/hr IV .Q31M [facility] Rx#:[id number] Oral 640 118 Output: Drainage 60 40 Upper Posterior Neck 60 40 Urine 650 3325 800 Other: Voiding Method Indwelling Catheter Urinal Urinal ABP, PAP, CO, CI - Last Documented Arterial Blood Pressure 104/83 - Exam GENERAL EXAM: Alert, pleasant 67-year-old gentleman, on 2 L nasal cannula, fairly comfortable in no apparent distress. HEAD: Normocephalic. EYES: Normal reaction of pupils, equal size. NOSE: Clear with pink turbinates. THROAT: No erythema or exudates. NECK: C-collar in place. No masses, no JVD. CHEST: No chest wall deformity. LUNGS: Equal air entry with no crackles, wheeze, rhonchi or dullness. CVS: S1 and S2 normal with no audible murmur, irregular rhythm. ABDOMEN: No hepatosplenomegaly, normal bowel sounds, no guarding or rigidity. SPINE: No scoliosis or deformity SKIN: No rashes CENTRAL NERVOUS SYSTEM: No focal deficits, tone is normal in all 4 extremities. EXTREMITIES: There is no peripheral edema. No clubbing, no cyanosis. Peripheral pulses are intact. - Labs CBC & Chem 7: 08/14/23 07:00 08/14/23 07:00 Labs: Abnormal Lab Results - Last 24 Hours (Table) 08/13/23 08/13/23 08/14/23 Range/Units 23:13 23:50 07:00 WBC 11.5 H (3.8-10.6) k/uL RBC 3.63 L (4.30-5.90) m/uL Hgb 11.3 L (13.0-17.5) gm/dL Hct 33.8 L (39.0-53.0) % Neutrophils # 8.6 H (1.3-7.7) k/uL APTT 30.9 H (22.0-30.0) sec Sodium 132 L (137-145) mmol/L BUN (9-20) mg/dL Creatinine (0.66-1.25) mg/dL Glucose (74-99) mg/dL POC Glucose (mg/dL) (70-110) mg/dL 08/14/23 08/14/23 Range/Units 07:00 12:26 WBC (3.8-10.6) k/uL RBC (4.30-5.90) m/uL Hgb (13.0-17.5) gm/dL Hct (39.0-53.0) % Neutrophils # (1.3-7.7) k/uL APTT (22.0-30.0) sec Sodium 133 L (137-145) mmol/L BUN 8 L (9-20) mg/dL Creatinine 0.43 L (0.66-1.25) mg/dL Glucose 113 H (74-99) mg/dL POC Glucose (mg/dL) 139 H (70-110) mg/dL Assessment and Plan Assessment: Neck pain in a patient found to have rheumatoid spondylotic myelopathy with deformity, 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 Postoperative day #3 New onset atrial fibrillation with rapid ventricular response History of hypertension Chronic tobacco dependence Plan: The patient was seen and evaluated Labs and medications reviewed Currently stable and on 2 L nasal cannula Continues to work well with the incentive spirometer Titrate down the FiO2 as tolerated Antiarrhythmics and anticoagulation per cardiology We will continue to follow I have personally seen and examined the patient, performed the documentation and the assessment and plan as written. Number of minutes spent on the visit: 10.
[2023-08-14] MEDS: polyethylene glycoL 3350 17 GM POWD.PACK PO SCH (21:02)
[2023-08-15] MEDS: ACETAMINOPHEN TAB 325 MG TAB PO SCH ×2 (04:59→12:28)
--- NOTE | 2023-08-15 07:53 | P.OP ---
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, vertebrae M06.89 Other specified rheumatoid arthritis, multiple sites S13.120S Subluxation of C1/C2 cervical vertebrae, sequela S13.111S Dislocation of C0/C1 cervical vertebrae, sequela S13.130S Subluxation of C2/C3 cervical vertebrae, sequela Postoperative Diagnosis: M47.11 Other spondylosis with myelopathy, qlsbgutb-ogzbgtg-zmvzq region M47.12 Other spondylosis with myelopathy, cervical region M47.13 Other spondylosis with myelopathy, cervicothoracic region 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 USE OF PENDING SALE TO [facility] CODES: 73479, 81430, 30482t2, 73442, 70153, 60912a5 Implants: -NESHA POSTERIOR CERVICAL SYSTEM WITH OCCIPITAL PLATE -MAGNATOS, AUTOGRAFT Anesthesia: GETA Surgeon: Dhaval Kumar Furnace Roaster #1: David Mayer (WAS PRESENT AND ASSISTED WITH ALL ASPECTS OF THE CASE FROM POSITION TO CLOSURE) Estimated Blood Loss (ml): 250 IV fluids (ml): 1,500 Urine output (ml): 300 Pathology: none sent Condition: stable Disposition: PACU Indications for Procedure: Mr. Bah is presenting for evaluation of neck pain It was my pleasure to have seen and examined Mr. Bah. In our visit today we have had a chance to go over subjective complaints, physical examination findings and treatments including the natural course history without intervention and various interventional options. The patients imaging demonstrates: Severe rheumatological signs of neck deterioration with rheumatoid spondylotic arthropathy, C1-2 instability with increased LACHO >3; Basilar invagination; Subaxial subluxation. Severe spondylosis of subaxial cervical levels as well with severe stenosis. On physical exam, Mr. Bah demonstrates: Neck pain, limited ROM secondary to neck pain and spondylosis as well as basilar issues. UE and LE weakness. Discoordination. Myelopathy I have explained to the patient that as their condition progresses it will cause further neurological deficits and eventual paralysis. Based on the patients imaging, physical exam, and the rapid progression and disabling nature of their symptoms, at this time I recommend surgery in the form of a: Occipital - T2 decompression and fusion. I discussed the risk and benefits of this procedure at length with Mr. Bah. The patient agreed to considered pursuing the procedure abovementioned. Prior to surgery, she should follow up with her PCP (Cardio, ID, IM etc) for clearance. Questions were invited and answered, and the patient wishes to proceed as outlined below. Currently, I am recommendin.Occipital - T2 decompression and fusion Description of Procedure: OCCIPUT-T2 decompression and fusion The patient was seen and examined in the preoperative area. All preoperative protocols were followed. Informed consent was obtained, risks and benefits of the procedure were discussed at length. Risks including bleeding infection damage to the surrounding tissue and risk of reoperation were discussed with the patient. Risk of anesthesia up to and including was discussed with the patient. These are outlined in the risk review. They were willing to accept these risks and all of the risks of surgery. The patient was given a weight- based dose of antibiotics in the form of 2 g Ancef. The patient was seen and evaluated by the anesthesia team who deemed them fit for surgery. The site was marked, the patient was willing to proceed with the procedure. The patient was transferred to the operative suite by the Department of anesthesia. They were then drifted off to sleep by the department anesthesia and GETA was performed. The patient tolerated this well. pre-positioning motors were obtained.Coto in place from the floor. Once confirmation of lines and ventilation Albert head clamp was placed on the patient and secured and the patient was transferred to a [prone Palomo table very carefully] with the Albert cigar head perforator the head was secured and placed into an optimal position x- ray confirmed this position. Post-positioning motors remained stable. All bony prominences including wrists, elbows, axilla, chest, hips, and thighs, and feet were padded very well. Special attention was paid to the genitalia and these were padded accordingly. SCDs were placed on bilateral lower extremities and were connected. Arms were well padded and placed tucked at his side thumbs down. Shoulders were gently taped down to the table.. Once in position, again we confirmed good ventilation capabilities and that lines were running appropriately. The patient's posterior cervical spine was then exposed. 1010s were placed outlining the incision site. Standard alcohol was used to clean the incision site and allowed to dry. C-arm was used to biomark the patient and confirm level for incision which was marked with a skin marker. Operative briefing was performed with all teams and everyone in agreement to proceed. The patient was then prepped and draped in a normal sterile fashion. Timeout was then performed and all parties were in agreement with the procedure to be performed. Midline skin incision made over the previously bio-marked area and dissection taken down midline to the SP of C2-T2. Subperiosteal dissection taken out over the lamina and lateral masses of C2-C7 and TVP of T1 and T2. Exposure was then taken up to the C1 posterior arch and up to the inion of the skull. Careful bipolar dissection was done on the underside of the C1 arch to match the lateral exposure on C2. Same was done on the skull. A Becker elevator was used on the skull to carefully peel off the periosteum in this area for a subperiosteal, minimally bloody dissection. A template was used to identify areas of dissection needed laterally. Once this was accomplished, the template was used to harriet holes for drilling in the skull. Once exposure complete, the wound was irrigated and the C-arm brought in for imaging. A penfield 4 was used to bluntly dissect the medial border of C2 pedicle and placed for guidance. C arm used and a spike hole made for the starting point. The C2 pedicle was then drilled in 2 mm increments to 16 mm using a ball tip feeler in between each drill session to make sure within the 4 acosta with a good bottom. Once this was accomplished a screw was selected and placed under lateral fluoroscopic guidance. Screw had a good purchase. This was then repeated on the contralateral side. AP confirmed good placement of both screws. We then proceeded to the T1 and T2 screws bilaterally. A highspeed spike was used to remove the facet joint of C7 and to create a starting point for T1 and similarly, T1 facet for T2. Pedicle finder was then passed into T1 and T2 and imaging taken to confirm placement this was then removed and a tap placed ball-tipped probe was then placed and 4 acosta of pedicle fell with good bottom. Screw was then measured and placed intoT1 and T2. This is repeated on the contralateral side. Imaging confirmed good placement of all 4 thoracic screws. Attention was then drawn to the base of the skull. Using the template, the screw holes were marked out and drilled using positive stop drill guide and lateral fluoroscopy. 8mm holes were drilled and then advanced by 2 mm until the inner cortex was minimally breached. Ball tip probe was then used to palpate the shelf and measure for a screw. 10mm and 12mm screws were selected and placed through the plate. They were then secured and had good purchases. Lateral imaging confirmed their length and placement. Plate was midline and inline with the remainder of the construct. The wound was then irrigated. Lateral mass screws were then drilled to 12 mm and placed at each level from C3-6. Each had a good bite. Rods were then sized and selected and cut to length. They were bent accordingly and lordosis and to fit the occiput plate. These were then secured into C2 bilaterally and then sequentially reduced into lateral mass screws and T1 and T2 screws without issues. Then gentle traction was placed on the head to allow for reduction of the C1-2 joint as well as the OC joint due to collapse in this patient. IONM remained stable. Then set screws secured rods into the occipital plate. All set screws were placed and were then final tightened and the position. Bilateral laminectomy, facetectomy and foraminotomies were then done from C2-T1 using high speed spike, kerrison rongeur and upbiting curette. Bilateral laminotomy troughs were made with spike followed by curette to release ligamentum. Rongure was then used to gently remove the lamina and facets posteriorly without issues. Meticulous hemostasis was performed after.. Motors were run before and after decompression and they remain stable. Good pulsations of the cord were noted after decompression. Foraminotomies then performed with kerrison rongeur and clean up of the laminectomy site. The wound was then copiously irrigated with 3 L of Ancef irrigation followed by 3 L of gentamicin irrigation followed by 3 L of normal sterile saline. Facet joints were drilled at each level to allow for fusion Surgicel was placed over the dura. MagnetOs were placed in the posterior lateral gutters along with autograft.. This was impacted into position for fusion. 2 g of powdered vancomycin was then placed deep within the wound and a deep drain was placed. We then proceeded with layered closure first in the deep fascia with #1 PDS t hen in the deep fascia followed by a running #1 stratafix. 0 Vicryl was used in the deep subq fascia and an 0 PDS stratafix used in the subdermal layer. Skin charlene then approximated skin edges. The wound edges approximated very well. The wound was then cleaned and dressed sterilely with an operative foam dressing 4 x 4 and Tegaderm. The drain had good suction. The patient was placed in a h zachariah cervical collar. The patient was transferred back to their hospital bed atraumatically. Albert head clamp was removed and pin sites were clear. Drain continued to hold suction. Patient was placed in a hard collar Patient was then awakened and extubated by the department of anesthesia having tolerated the procedure very well with no complications. They were transferred to the postoperative care unit in stable condition.
[2023-08-15] MEDS: MULTIVITAMINS, THERA 1 EACH TAB PO SCH (09:02)
[2023-08-15] MEDS: HYDROcodone/APAP 10-325MG 1 EACH TAB PO PRN ×2 (09:02→13:50)
[2023-08-15] MEDS: SENNOSIDES-DOCUSATE SODIUM 1 EACH TAB PO SCH (09:02)
[2023-08-15] MEDS: AMIODARONE 200 MG TAB PO SCH (09:02)
[2023-08-15] MEDS: GABAPENTIN 300 MG CAP PO SCH (09:02)
[2023-08-15] MEDS: APIXABAN 5 MG TAB PO SCH (09:02)
[2023-08-15] MEDS: CHOLECALCIFEROL 125 MCG (5000 IU) TABLET PO SCH (09:02)
[2023-08-15] MEDS: DILTIAZEM ORAL 60 MG TAB PO SCH (09:02)
[2023-08-15 09:08] VITALS: PULSE 84; RESP 16
--- NOTE | 2023-08-15 09:59 | P.PN ---
Subjective Progress Note Date: 08/15/23 Principal diagnosis: 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 Neck pain 4. subaxial subluxation 5. Basilar invagination Patient seen and examined this morning. Patient is sitting in chair at bedside. He states his pain is managed on current regimen. Surgical incision to the posterior cervical spine, edges are approximated with charlene intact, no active drainage. Hemovac has been discontinued. Hard cervical collar intact. Patient denies any radiculopathy or numbness/tingling to the upper extremities. Patient reports that is ambulating within room with walker and PT. He is tolerating activity well with assistance. Continue to encourage patient to be up in chair with all meals and to use the incentive spirometer. Patient is cleared from an Orthopedic standpoint for discharge when medically stable to [facility]. Objective - Vital Signs Vital signs: Vital Signs Temp 98.3 F 08/15/23 08:00 Pulse 84 08/15/23 09:00 Resp 16 08/15/23 09:00 BP 112/70 08/15/23 09:00 Pulse Ox 97 08/15/23 09:00 FiO2 Intake & Output 08/14/23 08/15/23 08/15/23 18:59 06:59 18:59 Intake Total 476 Output Total 800 900 Balance -324 -900 Weight 120.5 kg Intake: Oral 476 Output: Drainage 50 Upper Posterior Neck 50 Urine 800 850 Other: Voiding Method Urinal Urinal ABP, PAP, CO, CI - Last Documented Arterial Blood Pressure 104/83 - Exam Physical Examination General: The patient is awake and alert, in no acute distress Skin: Skin is warm and dry with no obvious rashes or lesions. Surgical incision to the posterior cervical spine, edges are well approximated with charlene intact. Hemovac drain removed. New dressing applied. Eye: Pupils are equal, round and reactive to light, extra-ocular movements are intact; there is normal conjunctiva bilaterally. Neck: The neck is supple, there is moderate tenderness and limited range of motion due to surgical procedure and Sigourney hard collar in place. Cardiovascular: There is a regular rate and rhythm. No murmur, rub or gallop is appreciated. Respiratory: Lungs are clear to auscultation, respirations are non-labored, breath sounds are equal. Gastrointestinal: Soft, non-distended, non-tender abdomen. Back: There is no tenderness to palpation in the midline, paralumbar, parathoracic or buttocks region. There is no obvious deformity . Musculoskeletal: ROM limited secondary to pain and stiffness from surgical procedure. Muscle strength in all major muscle groups of bilateral upper extremities 4/5, bilateral lower extremities 5/5. Neurological: CN 2-12 intact. There are no obvious motor or sensory deficits. Movement and coordination equal and intact. Sensory exam to light touch intact C5-T1 and intact from L2-S1. Reflexes 2/4 in bilateral upper and lower extremities. Negative Hoffmans, babinski, and clonus signs. Psychiatric: Cooperative, appropriate mood & affect, normal judgment. - Labs CBC & Chem 7: 08/14/23 07:00 08/14/23 07:00 Labs: Abnormal Lab Results - Last 24 Hours (Table) 08/14/23 Range/Units 12:26 POC Glucose (mg/dL) 139 H (70-110) mg/dL Assessment and Plan Assessment: Post-Op day 4: OccipitalT2 decompression and fusion 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 Neck pain 4. subaxial subluxation 5. Basilar invagination Plan: -Appreciate health care consultant and team management. -Activity: Ambulate QID, OOB all meals, up and about, limit lifting bending twisting to less than 5 lbs. Use walker or cane if needed for stability. -Daily PT/OT, increase ambulation strength and balance. -Hard cervical collar at all times, may remove for showers. -Pain control: Adequate at this time -Meds: reviewed -GI ppx: senna, Miralax -DVT PPX: Heparin -Hygiene: Maintain dressing clean and dry. -Encourage IS 10x/hr -Dispo: Patient is cleared from orthopedic standpoint for discharge when medically stable to subacute rehab *I reviewed and discussed this case with my attending Dr. Kumar, whom has reviewed this chart and films and is in agreement with assessment and plan of care as outlined above. I have personally seen and examined the patient, performed the documentation and the assessment and plan as written. Number of minutes spent on the visit: 20m.
[2023-08-15 11:05] LABS: African American GFR (CKD) >90 (>60 ml/min/1.73 sqM); Anion Gap 5 mmol/L; Blood Urea Nitrogen 12 mg/dL (9-20); Calcium 8.6 mg/dL (8.4-10.2); Carbon Dioxide 29 mmol/L (22-30); Chloride 98 mmol/L (98-107); Glucose 108 mg/dL (74-99); Non-African American GFR(CKD) >90 (>60 ml/min/1.73 sqM); Potassium 4.1 mmol/L (3.5-5.1); Sodium 132 mmol/L (137-145)
[2023-08-15 11:47] VITALS: BP 101/76; TEMP 98
--- NOTE | 2023-08-15 12:56 | P.PN ---
Subjective Progress Note Date: 08/15/23 Patient is a 67-year-old male with hypertension, osteoarthritis and rheumatoid arthritis who presented for an elective occipital to T2 decompression and fusion due to C1-2 instability. Patient seen and examined at bedside. Denies any chest pain, shortness of breath, abdominal pain, nausea, vomiting, urinary or bowel complaints. Vital signs reviewed General: Nontoxic, no distress, appears at stated age Cardiovascular: S1S2, irregular, no murmur, positive posterior tibial pulse bilateral, cervical collar in place Lungs: CTA bilateral, no rhonchi, no rales, no accessory muscle use Abdominal: Soft, nontender to palpation, no guarding, no appreciable organomegaly Ext: No gross muscle atrophy, no edema b/l lower extremities, no contractures Neuro: CN II-XI grossly intact, no focal neuro deficits Psych: Alert, oriented, appropriate affect Assessment/Plan: Patient is a 67 yo male status post occiput to T2 decompression Osteoarthritis Rheumatoid arthritis-currently not on any disease modifying drugs or Biologics -Pain management, and bowel regimen per primary surgical team Hyponatremia, euvolemic, resolving -Nephrology following, discontinued fluid restriction, continue off of IV fluids -Continue to hold hydrochlorothiazide 25 mg Paroxysmal atrial fibrillation with RVR, now rate controlled -Cardiology following, started on Cardizem extended release 180 mg daily, amiodarone 400 twice daily, Eliquis 5 twice daily -Echocardiogram showed normal LV systolic function, dilated aortic root at 3.9 cm Acute blood loss anemia, anticipated outcome of surgery Leukocytosis, anticipated outcome of surgery -No active bleeding, repeat CBC tomorrow Hypertension -Will continue to hold ARB, HCTZ due to low normal blood pressure Data Review: Sodium 132, creatinine 0.47, blood sugars 108 Patient is medically optimized for discharge to rehab. Thank you for allowing us to participate in the care of this pleasant patient. Do not hesitate to contact us with questions. Someone can be reached from the [facility] hospitalist group all hours of the day at [phone] or via perfect serve. Objective - Vital Signs Vital signs: Vital Signs Temp 98 F 08/15/23 11:32 Pulse 84 08/15/23 11:37 Resp 16 08/15/23 11:37 BP 101/76 08/15/23 11:32 Pulse Ox 93 L 08/15/23 11:30 FiO2 Intake & Output 08/14/23 08/15/23 08/15/23 18:59 06:59 18:59 Intake Total 476 378 Output Total 800 900 400 Balance -324 -900 -22 Weight 120.5 kg Intake: IV 20 Invasive Line 2 10 Invasive Line 4 10 Oral 476 358 Output: Drainage 50 Upper Posterior Neck 50 Urine 800 850 400 Other: Voiding Method Urinal Urinal Urinal ABP, PAP, CO, CI - Last Documented Arterial Blood Pressure 104/83 - Labs CBC & Chem 7: 08/14/23 07:00 08/15/23 10:28 Labs: Abnormal Lab Results - Last 24 Hours (Table) 08/15/23 Range/Units 10:28 Sodium 132 L (137-145) mmol/L Creatinine 0.47 L (0.66-1.25) mg/dL Glucose 108 H (74-99) mg/dL
--- NOTE | 2023-08-15 13:40 | P.PN ---
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 Cardiology consultation was requested because of an episode of atrial fibrillation. The patient has no history of cardiac disease, arrhythmia or CHF. He is not as active physically but denies any chest discomfort, significant dyspnea, dizziness or palpitations. He has a history of hypertension and smokes about a half a pack a day. He has no history of diabetes. He had a brief episode of atrial fibrillation that subsequently c onverted to sinus mechanism spontaneously. Hemodynamically he is stable. He has been maintained on Xarelto as an outpatient because of asymptomatic carotid disease by his previous primary care physician. A carotid duplex scan performed yesterday showed less than 50% stenosis. Medications: Xarelto 2.5 mg twice a day, telmisartan hydrochlorothiazide 80-25 mg daily, multivitamin, vitamin D 08/14/2023 Patient examined this morning at the bedside. Patient currently denies chest pain or pressure. He denies shortness of breath. He remains in atrial fibrillation with controlled ventricular rate. He remains on IV Cardizem at 10 mg an hour, IV amiodarone at 0.5 milligrams per minute. Vital signs are stable. Echocardiogram completed revealing normal LV systolic function with an ejection fraction of 55 to 60%, and trace MR, trace TR. 08/15/2023 Patient examined this morning. Patient is sitting up in the chair. Patient denies chest pain or pressure. He denies shortness of breath. Telemetry reveals atrial fibrillation with controlled ventricular rate in the 90s. PHYSICAL EXAM: VITAL SIGNS: Reviewed. GENERAL: Well-developed in no acute distress. NECK: Supple. No JVD or thyromegaly. Cervical collar noted. LUNGS: Respirations even and unlabored. Lungs essentially clear to auscultation bilaterally. HEART: Irregular rate and rhythm. S1 and S2 heard. EXTREMITIES: Normal range of motion. No clubbing or cyanosis. Peripheral pulses intact. No lower extremity edema ASSESSMENT: 1. Status post cervical decompression 2. Paroxysmal atrial fibrillation with controlled ventricular rate 3. History of hypertension 4. Chronic tobacco use PLAN: Change Cardizem to Cardizem CD 180 mg daily Amiodarone taper: 400 mg twice a day for 1 week, then decrease to 200 mg twice a day for 1 week, then decrease to 200 mg daily Continue additional cardiac medications Patient may be discharged home today from a cardiac standpoint He is to follow-up postdischarge in the hospital Nurse practitioner note has been reviewed by physician. Signing provider agrees with the documented findings, assessment, and plan of care documented by INDUCTOR TESTER as a scribe. Objective - Vital Signs Vital signs: Vital Signs Temp 98 F 08/15/23 11:32 Pulse 84 08/15/23 11:37 Resp 16 08/15/23 11:37 BP 101/76 08/15/23 11:32 Pulse Ox 93 L 08/15/23 11:30 FiO2 Intake & Output 08/14/23 08/15/23 08/15/23 18:59 06:59 18:59 Intake Total 476 378 Output Total 800 900 400 Balance -324 -900 -22 Weight 120.5 kg Intake: IV 20 Invasive Line 2 10 Invasive Line 4 10 Oral 476 358 Output: Drainage 50 Upper Posterior Neck 50 Urine 800 850 400 Other: Voiding Method Urinal Urinal Urinal ABP, PAP, CO, CI - Last Documented Arterial Blood Pressure 104/83 - Labs CBC & Chem 7: 08/14/23 07:00 08/15/23 10:28 Labs: Abnormal Lab Results - Last 24 Hours (Table) 08/15/23 Range/Units 10:28 Sodium 132 L (137-145) mmol/L Creatinine 0.47 L (0.66-1.25) mg/dL Glucose 108 H (74-99) mg/dL
--- NOTE | 2023-08-15 14:15 | P.DS ---
Providers Date of admission: 08/11/23 06:53 Expected date of discharge: 08/15/23 Attending physician: Dhaval Kumar DO Consults: 08/11/23 15:02 Consult Physician Routine Consulting Provider: Faheem Loyd Consult Reason/Comments: medical management s/p occiput-T2 decompr fusion Do you want consulting provider notified?: Yes 08/11/23 15:32 Consult Physician Routine Consulting Provider: Sharon Block Consult Reason/Comments: ICU MANAGMENT Do you want consulting provider notified?: Yes 08/13/23 01:58 Consult Physician Routine Consulting Provider: Chris Clemons Consult Reason/Comments: P. afib Do you want consulting provider notified?: Yes 08/13/23 09:35 Consult Physician Routine Consulting Provider: Cathie Hargrove Consult Reason/Comments: Hyponatremia Do you want consulting provider notified?: Yes Primary care physician: Faheem Loyd MD Hospital Course: Hospital Course: The patient was evaluated preoperatively and found to have the diagnosis of cervical stenosis with claudication. They underwent appropriate preoperative care and were willing to undergo the intended procedure. They underwent a successful occipitalT2 decompression and fusion, were recovered appropriately and sent to the floor. While on the floor they worked with physical therapy, occupational therapy and nursing to enhance their recovery experience. Their pain was well controlled through their stay and they were started on appropriate medications, DVT ppx modalities, activity and dietary needs. Daily labs were monitored closely, and transfusions were only used when necessary. Medicine as well as other consulting services have made their input and have helped with our team approach and multidisciplinary care. PT milestones have been met and passed and they have made the recommendation of subacute rehab for this patient and treating providers agree with this care path. The patient will be discharged home with appropriate medications, instructions and follow-up information and in stable condition. Patient Condition at Discharge: Good Plan - Discharge Summary Discharge Rx Participant: Yes New Discharge Prescriptions: New cefaDROXiL [Duricef] 500 mg PO Q12HR #10 cap HYDROcodone/APAP 10-325MG [[place] 10-325] 1 tab PO Q4-6H PRN #42 tab PRN Reason: Pain Sennosides/Docusate Sodium [Senna Plus 8.6-50 mg Tablet] 1 each PO DAILY PRN #20 tablet PRN Reason: Constipation Apixaban [Eliquis] 5 mg PO BID tab Amiodarone [Cordarone] 400 mg PO BID tab Gabapentin 300 mg PO TID #90 cap methocarbamoL 750 mg PO TID PRN #40 tablet PRN Reason: Muscle Spasm Diltiazem Cd [Cardizem CD] 180 mg PO DAILY cap Continue Multivitamins, Thera [Multivitamin (formulary)] 1 tab PO DAILY Cholecalciferol (Vitamin D3) [Vitamin D3 (125 MCG = 5,000 IU)] 125 mcg PO DAILY Glucosamine (Unknown Dose) 1 tab PO DAILY Discontinued Telmisartan/Hydrochlorothiazid [Telmisartan-Hctz 80-25 mg Tab] 1 each PO QAM Rivaroxaban [Xarelto] 2.5 mg PO DAILY No Action methocarbamoL 750 mg PO TID PRN PRN Reason: Pain Discharge Medication List Cholecalciferol (Vitamin D3) [Vitamin D3 (125 MCG = 5,000 IU)] 125 mcg PO DAILY 08/07/23 [History] Glucosamine (Unknown Dose) 1 tab PO DAILY 08/07/23 [History] Multivitamins, Thera [Multivitamin (formulary)] 1 tab PO DAILY 08/07/23 [History] methocarbamoL 750 mg PO TID PRN 08/07/23 [History] Amiodarone [Cordarone] 400 mg PO BID tab 08/15/23 [Rx] Apixaban [Eliquis] 5 mg PO BID tab 08/15/23 [Rx] Diltiazem Cd [Cardizem CD] 180 mg PO DAILY cap 08/15/23 [Rx] Gabapentin 300 mg PO TID #90 cap 08/15/23 [Rx] HYDROcodone/APAP 10-325MG [[place] 10-325] 1 tab PO Q4-6H PRN #42 tab 08/15/23 [Rx] Sennosides/Docusate Sodium [Senna Plus 8.6-50 mg Tablet] 1 each PO DAILY PRN #20 tablet 08/15/23 [Rx] cefaDROXiL [Duricef] 500 mg PO Q12HR #10 cap 08/15/23 [Rx] methocarbamoL 750 mg PO TID PRN #40 tablet 08/15/23 [Rx] Follow up Appointment(s)/Referral(s): Ventura Marie MD [STAFF PHYSICIAN] - 1 Week Faheem Loyd MD [Primary Care Provider] - 1 Week Dhaval Kumar DO [Doctor of Osteopathic Medicine] - 10 Days Activity/Diet/Wound Care/Special Instructions: Amiodarone taper: 400 mg twice a day for 1 week, then decrease to 200 mg twice a day for 1 week, then decrease to 200 mg daily Spine Discharge and Recovery Instructions Date of Surgery: 08/11/2023 Diagnosis: cervical stenosis Procedure: occipitalT2 decompression and fusion Medications: See medication list All medication refills should be obtained through your primary care doctor or your clinic spine surgeon. Please discuss prescription refills at your follow up appointment. Do not call the hospital for medication refills. Activity: Encourage ambulation with assist of walker, Up and about 6-8x daily PT/OT daily work on balance, strength and mobility Up in chair with all meals Shower daily Brace: Use brace when up and about, do not wear in bed or shower Dressing: Leave your dressing in place for a total of 3 days post operatively. Then you may remove your dressing and leave open to air. Keep the area clean and if not able to keep area clean, then cover with sterile gauze and tape. Showering: You may shower 3 days after your procedure allowing soap and water to run over incision. Do not scrub. Do not soak. Blot dry. Follow up: Please confirm a follow up appointment with your surgeon 2 weeks post operatively. Please make an appointment to follow up with your PCP in 1-2 weeks after surgery for evaluation `3 phase, 3-week plan POST OP WEEKS 1-3 1. Lifting/carrying/pushing/pulling limited to less than 5 pounds. 2. Do not sit for longer than 15 minutes at one time. Get up and walk around. Prolonged sitting is NOT advised. If you lay down, see if you can tolerate laying down on you front (belly side) 3. Walk for periods of 15 minutes = 1 mile but no longer; do it multiple times times each day. 4. Ice your low back after activity. POST OP WEEKS 3-6 1. Lifting limited to less than 20 pounds. 2. Do not sit for longer than 30 minutes at a time. Frequently change positions. Use a sit-to stand workstation or take frequent breaks from sitting if you have returned to work. 3. Walk for 30 minutes each day. If possible, do these three or more times a day POST OP WEEKS 6+ At your 6-week appointment we will give you a physical therapy referral to focus on a core stabilization and strengthening program. You should also work on leg & buttock strengthening, hamstring & quadriceps stretching, and continue a low impact aerobic activity program such as swimming, walking, or riding a stationary bicycle. During the initial 6 weeks after your surgery, you are at the highest risk of re-injuring your spine. You should generally avoid BLTs (bending, lifting and twisting combination motions) and follow the above guidelines to reduce the chance of reinjury. You can anticipate post op appointments in our office at approximately 3 weeks and 6 weeks after your surgery. INCISION CARE: If your incision is not draining you do NOT need to cover it with a dressing. Keep your incision clean, dry and intact. In most cases, we apply skin glue, charlene or sutures to the incision at the time of surgery. This will be like a crust or have the appearance of a scab and will fall off in time on its own. The stitches or charlene need to be removed at 3 weeks post op appointment. You may begin to shower 3 days after surgery (this allows the glue to jean-baptiste well). However, please avoid scrubbing the incision site or peeling off any of the skin glue. This will ensure optimal healing of your incision. Also, during this time avoid soaking the incision area in water - this includes swimming pools, hot tubs or baths. No ointments, lotions or oils on the incision until your surgeon allows. Leave charlene, sutures or glue in place. Neurological dysfunction that comes on suddenly can also be a sign of a stroke. Below some common symptoms of a stroke are listed: B - balance difficulty such as sudden onset walking or leaning to one side - NEW E - eye problem such as sudden double vision or trouble seeing on one side - NEW F - Facial weakness or numbness on one side - NEW A - Arm or leg weakness or numbness on one side - NEW S - Slurred speech or difficulty with word finding - NEW T - Time is BRAIN! Call 911 as soon as you recognize these symptoms Diet: Consume a regular diet rich in vegetables and lean protein such as chicken or fish. You should consume in a ratio of approximately 20% fats|40% carbohydrates|40%protein. Vegetables, sweet potatoes, brown rice or quinoa are examples of good carbohydrates. Chips, white bread, cookies and sweets/sugar are examples of bad carbohydrates. Limit your bad carbs, go wild with good carbs. 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 (1) Get Active. Physical activity can help people lose weight, control high blood pressure and cholesterol, feel emotionally better, and sleep better. (2) Control Cholesterol. Avoid a diet high in saturated fat, trans fat, & cholesterol. Limit whole milk & cream, ice cream, butter, egg yolks, processed meats (like sausage and hot dogs), and fatty meats. Choose healthy foods that are low in saturated fat, trans fat and cholesterol which include: Fruits and vegetables, fiber rich grain products (like whole grain pasta and brown rice), lean meat such as chicken, fish, nuts, seeds, and legumes. (3) Eat Better. Eat small portions. Shop at the grocery with a list and do not stray from it. Tips for a healthy diet include: Limit sodium intake to less than 1500mg daily, avoid prepackaged, processed, and fast foods, choose a diet rich in fruits, vegetables, and whole grain, high fiber foods, and limit saturated & cholesterol in your diet. (4) Manage Blood Pressure. If you have high blood pressure, you should have a cuff at home so that you can check your blood pressure regularly. Be sure you have a good cuff. An arm one is generally better than a wrist one. Bring the cuff to a doctor's appointment to validate that the measurements that your cuff are taking are accurate. Take your blood pressure twice daily when you are sitting down and relaxing. Record the numbers in a log and bring this log with you to your doctors' appointments. (5) Lose Weight if your BMI is above 25. A healthy BMI is between 19-25. To calculate Your BMI, you may use a Standard BMI Calculator on the NIH BMI website: <www.nhlbi.nih.gov/guidelines/obesity/BMI/bmicalc.htm>. Weigh oneself daily. If you are overweight, set a goal to lose weight. A pound a week loss if needed is a good target. (6) Reduce Blood Sugar. Limit foods and liquids with "added sugars." (Added sugars include sucrose, fructose, glucose, maltose, dextrose, high fructose corn syrup, corn syrup, concentrated fruit juice and honey). (7) Stop Smoking. If you smoke, quitting smoking is one of the best things that you can do for your health. Smoking increases your risk of heart attack, stroke, and peripheral vascular disease, which is a build-up of plaque in your arteries. Please discard all the cigarettes and lighters in your house. Have a plan for what you will do when you have the urge to smoke. Direct and second- hand smoke shortens your life as well as the lives of your family, friends and others around you. For your health and the health of those around you, please consider quitting! Proper Bending Body Mechanics: Maintain a wide stance with one foot slightly in front of the other. Keep your back straight. Bend utilizing the strength in your hips and knees. Do not bend at the waist. Maintain the lifted object at your waist-level close to your body. Avoid lifting weight that causes immediately pain or pain anywhere in the body afterwards. Smoking/Nicotine If there was ever one thing that you could do to increase your overall health, decrease your risk of cardiovascular problems by about 39% the second you make the choice, it is to STOP SMOKING. Your body's most instant gratification is the second you stop smoking. We have all heard the studies, read the articles but it is true, smoking is extremely bad for your overall health, and moreover it is detrimental to your bone health. Nicotine, IN ANY FORM, kills bone cells, prevents your body from healing fractures, and significantly prolongs healing after surgery. In spine surgery specifically, it increases your risk of not healing your bones to create a fusion and increases your risk of having a revision surgery due to this up to 60%. I know it is hard. I know it feels impossible. But there are ways. Take control of your life. We are here to help you through it. And when you are ready, ask us and we can direct you to help if you desire. Use the START Plan to Quit Smoking (please visit the HelpguContent360.org website listed below for more information): S = Set a quit date. Choose a date within the next 2 weeks, so you have enough time to prepare wi thout losing your motivation to quit. If you mainly smoke at work, quit on the weekend, so you have a few days to adjust to the change. T = Tell family, friends, and co-workers that you plan to quit. Let your friends and family in on your plan to quit smoking and tell them you need their support and encouragement to stop. Look for a quit alma who wants to stop smoking as well. You can help each other get through the rough times. A = Anticipate and plan for the challenges you'll face while quitting. Most people who begin smoking again do so within the first 3 months. You can help yourself make it through by preparing ahead for common challenges, such as nicotine withdrawal and cigarette cravings. R = Remove cigarettes and other tobacco products from your home, car, and work. Throw away all your cigarettes (no emergency pack!), lighters, ashtrays, and matches. Wash your clothes and freshen up anything that smells like smoke. Shampoo your car, clean your drapes and carpet, and steam your furniture. T = Talk to your doctor about getting help to quit. Your doctor can prescribe medication to help with withdrawal and suggest other alternatives. If you can't see a doctor, you can get many products over the counter at your local pharmacy or grocery store, including the nicotine patch, nicotine lozenges, and nicotine gum. Resources for Quitting Smoking: <https://www.[place].gov/documents/[facility]/Quit_Tobacco_Resources_for_patients_313 480_7.pdf> Supplementation: Take recommended dosages of Vitamin D and Calcium to help fortify your bones and help them to heal. See your health maintenance packet for dosages and recommended levels. DVT/VTE prophylaxis: You will be given compression stockings from the hospital. Wear these daily for the first two weeks after surgery. You may take them off at night. You may be prescribed a medication to help thin your blood. Take this as directed. If you are not prescribed this medication, early and frequent ambulation has been shown to be the best prophylaxis to deep vein thrombosis and sequelae related to this event. Discharge Disposition: TRANSFER TO SNF/ECF
--- NOTE | 2023-08-15 16:18 | P.PN ---
Subjective Progress Note Date: 08/15/23 This is a pleasant 67-year-old male patient with a known history of rheumatoid spondylotic myelopathy with deformity and ongoing neck pain. He was brought in electively today and had undergone a posterior cervical decompression fusion occipital to T2 with nerve integrity monitoring. Based on the location of the surgery he was admitted to the intensive care unit for close monitoring overnight. He is currently resting comfortably in bed. Hard c-collar in place. He is maintaining good O2 saturations in the 90s on 2 L/m per nasal cannula. He's been afebrile. Hemodynamically stable. His been initiated on cefazolin. He has lactated Ringer's at 20 ML's per hour. He will receive [place] alternating with Dilaudid for pain control. Reevaluated today on 08/12/2023, patient remains in the ICU, he is postoperative day #1. Patient is doing well, he is on 2 L nasal cannula, not in any distress, he is receiving lactated Ringer's at 75 cc/h. Continues to have a cervical collar in place, CT of cervical spine done this morning showed recent right laminectomy and fusion from occipital to T2, prevertebral soft tissue swelling with patent airways, the radiologist raised the possibility of posterior focal hemorrhage or complex fluid collection with air bubbles at the level of C3-C4 level compressing the posterior aspect of the thecal sac. Clinically the patient is doing well, relatively asymptomatic. Patient is hemodynamically stable, he had about 120 cc of serosanguineous fluid from the Hemovac through the night. His CBC is relatively normal hemoglobin is 12 sodium is low at 127 renal profile is normal bicarb is normal Patient was evaluated today on 08/13/2023, remains in the ICU, he is now postoperative day #2. Patient is relatively asymptomatic however he is in atrial fibrillation with RVR, seen by cardiology this morning, and his A-fib RVR is being addressed by cardiology. Patient has no pulmonary symptoms, no cough no wheezing or shortness of breath, he has some postoperative cervical pain, otherwise and no other symptoms. Labs were reviewed, WBC count is 12.7 hemoglobin 11.6, sodium is 126, it was as high as 129 yesterday. Renal profile is normal bicarb is normal. Clinically the patient is euvolemic. Could consider tolvaptan, however needed a nephrology clearance to use tolvaptan The patient is seen today August 14, 2023 in follow-up on the selective care unit. He is currently resting in bed. Awake and alert in no acute distress. This is postoperative day #3. He was still having issues with atrial fibrillation and rapid ventricular response currently his heart rate is in the 90s. He remains on a heparin drip per weight-based protocol. Cardizem drip at 10 mg an hour and amiodarone drip at 0.5 mg/min. White count 11.5. Hemoglobin 11.3. Platelets 290. Sodium 133. Potassium 3.9. Bicarb 27. BUN 8. Creatinine 0.43. Glucose 113. He continues to work well with the incentive spirometer. He is maintaining O2 saturations up to 100% on 2 L/min per nasal cannula. Afebrile. The patient is seen today August 15, 2023 in follow-up on the selective care unit. Postoperative day #4. He is awake and alert in no acute distress. He is sitting up in a chair at the bedside. Maintaining O2 saturations in the 90s on room air. Denies any shortness of breath, cough or congestion. C-collar is in place. Sodium 132. Potassium 4.1. Bicarb 29. BUN 12. Creatinine 0.47. Glucose 108. He is continued on oral amiodarone, Cardizem. Anticoagulated with Eliquis. Objective - Vital Signs Vital signs: Vital Signs Temp 98 F 08/15/23 11:32 Pulse 84 08/15/23 11:37 Resp 16 08/15/23 11:37 BP 101/76 08/15/23 11:32 Pulse Ox 93 L 08/15/23 11:30 FiO2 Intake & Output 08/14/23 08/15/23 08/15/23 18:59 06:59 18:59 Intake Total 476 516 Output Total 800 900 400 Balance -324 -900 116 Weight 120.5 kg Intake: IV 40 Invasive Line 2 20 Invasive Line 4 20 Oral 476 476 Output: Drainage 50 Upper Posterior Neck 50 Urine 800 850 400 Other: Voiding Method Urinal Urinal Urinal ABP, PAP, CO, CI - Last Documented Arterial Blood Pressure 104/83 - Exam GENERAL EXAM: Alert, pleasant 67-year-old gentleman, on room air, sitting up in a chair, comfortable in no apparent distress. HEAD: Normocephalic. EYES: Normal reaction of pupils, equal size. NOSE: Clear with pink turbinates. THROAT: No erythema or exudates. NECK: C-collar in place. No masses, no JVD. CHEST: No chest wall deformity. LUNGS: Equal air entry with no crackles, wheeze, rhonchi or dullness. CVS: S1 and S2 normal with no audible murmur, irregular rhythm. ABDOMEN: No hepatosplenomegaly, normal bowel sounds, no guarding or rigidity. SPINE: No scoliosis or deformity SKIN: No rashes CENTRAL NERVOUS SYSTEM: No focal deficits, tone is normal in all 4 extremities. EXTREMITIES: There is no peripheral edema. No clubbing, no cyanosis. Peripheral pulses are intact. 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 Postoperative day #4 New onset atrial fibrillation with rapid ventricular response recovered on oral Cardizem and amiodarone. Anticoagulated with Eliquis History of hypertension Chronic tobacco dependence Plan: The patient was seen and evaluated Labs and medications reviewed Currently stable and on room air Continues to work well with the incentive spirometer Antiarrhythmics and anticoagulation per cardiology Plan is for subacute rehabilitation at discharge I have personally seen and examined the patient, performed the documentation and the assessment and plan as written. Number of minutes spent on the visit: 10.
--- NOTE | 2023-08-15 19:58 | P.PN ---
Subjective Patient is seen for follow-up for hyponatremia. Sodium improved post Samsca. Pain is much improved today. Sodium at 132 today Objective - Vital Signs Vital signs: Vital Signs Temp 98 F 08/15/23 11:32 Pulse 84 08/15/23 11:37 Resp 16 08/15/23 11:37 BP 101/76 08/15/23 11:32 Pulse Ox 93 L 08/15/23 11:30 FiO2 Intake & Output 08/15/23 08/15/23 08/16/23 06:59 18:59 06:59 Intake Total 516 Output Total 900 400 Balance -900 116 Weight 120.5 kg Intake: IV 40 Invasive Line 2 20 Invasive Line 4 20 Oral 476 Output: Drainage 50 Upper Posterior Neck 50 Urine 850 400 Other: Voiding Method Urinal Urinal ABP, PAP, CO, CI - Last Documented Arterial Blood Pressure 104/83 - Exam Patient is awake, comfortable, no acute distress HEENT cervical collar Alert oriented x 3 Examination of the heart S1 and S2 Examination of the lungs bilateral breath sounds are heard Abdomen is soft nontender Examination of the lower extremity shows no evidence of edema - Labs CBC & Chem 7: 08/14/23 07:00 08/15/23 10:28 Labs: Abnormal Lab Results - Last 24 Hours (Table) 08/15/23 Range/Units 10:28 Sodium 132 L (137-145) mmol/L Creatinine 0.47 L (0.66-1.25) mg/dL Glucose 108 H (74-99) mg/dL Assessment and Plan Assessment: 1. Hyponatremia, euvolemic. Secondary to SIADH, improved post Samsca. 2. Status post C-spine to thoracic spine decompression and fusion 3. A-fib with RVR Plan: Avoid hydrochlorothiazide post discharge. Repeat sodium as outpatient. Patient is encouraged to maintain adequate oral protein intake.
[2023-08-16] MEDS ORDERED: DILTIAZEM CD 180 MG CAP.ER.24H PO SCH (09:00)
== END 2023-08-15 16:00 | DRG 453 ==
LOC: 2ORMAIN 06:53 → 2SICU 15:03 → 3SCARD 08-13 15:18
PROVIDERS: ADMIT Orthopaedic Surgery; ATTEND Orthopaedic Surgery
PROC: 0RG2071 Fusion of 2 or more Cervical Vertebral Joints with Autologous Tissue Substitute, Posterior Approach, Posterior Column, Open Approach (ICD-10-PCS; 2023-08-11)
PROC: 0RG00AJ Fusion of Occipital-cervical Joint with Interbody Fusion Device, Posterior Approach, Anterior Column, Open Approach (ICD-10-PCS; 2023-08-11)
PROC: 0RG0071 Fusion of Occipital-cervical Joint with Autologous Tissue Substitute, Posterior Approach, Posterior Column, Open Approach (ICD-10-PCS; 2023-08-11)
PROC: 0RG40AJ Fusion of Cervicothoracic Vertebral Joint with Interbody Fusion Device, Posterior Approach, Anterior Column, Open Approach (ICD-10-PCS; 2023-08-11)
PROC: 0RG4071 Fusion of Cervicothoracic Vertebral Joint with Autologous Tissue Substitute, Posterior Approach, Posterior Column, Open Approach (ICD-10-PCS; 2023-08-11)
PROC: 0RGA0AJ Fusion of Thoracolumbar Vertebral Joint with Interbody Fusion Device, Posterior Approach, Anterior Column, Open Approach (ICD-10-PCS; 2023-08-11)
PROC: 0RG6071 Fusion of Thoracic Vertebral Joint with Autologous Tissue Substitute, Posterior Approach, Posterior Column, Open Approach (ICD-10-PCS; 2023-08-11)
PROC: 0RG20AJ Fusion of 2 or more Cervical Vertebral Joints with Interbody Fusion Device, Posterior Approach, Anterior Column, Open Approach (ICD-10-PCS; principal; 2023-08-11 08:35)
DX: M47.12 Other spondylosis with myelopathy, cervical region (principal); G95.19 Other vascular myelopathies; E22.2 Syndrome of inappropriate secretion of antidiuretic hormone; D62 Acute posthemorrhagic anemia; M47.13 Other spondylosis with myelopathy, cervicothoracic region; M06.89 Other specified rheumatoid arthritis, multiple sites; I48.0 Paroxysmal atrial fibrillation; I77.810 Thoracic aortic ectasia; I10 Essential (primary) hypertension; M47.11 Other spondylosis with myelopathy, occipito-atlanto-axial region; D72.828 Other elevated white blood cell count; M48.02 Spinal stenosis, cervical region; M53.2X2 Spinal instabilities, cervical region; R51.9 Headache, unspecified; F17.210 Nicotine dependence, cigarettes, uncomplicated; Z11.52 Encounter for screening for COVID-19; Z79.01 Long term (current) use of anticoagulants; Z79.899 Other long term (current) drug therapy
CPT/HCPCS: 72040; 72125; 80048; 83735; 83935; 84295; 84300; 84443; 85025; 85610; 85730; 86891; 93306; 93880; 94760

== ENCOUNTER → 2024-07-05 | Outpatient (CLI) | payer MEDICARE ==
--- NOTE | 2024-07-05 10:37 | CT ---
EXAMINATION TYPE: CT brain cspine wo con DATE OF EXAM: 07/05/2024 9:54 AM COMPARISON: 07/05/2024, 08/11/2023, 03/27/2023. 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 Cspine: Axial CT images from the skull base to the inferior aspect of T2 we obtained without intraven ous contrast. Coronal and sagittal reformatted images were also reviewed. . CT DLP: 1763.6 mGycm, Automated exposure control for dose reduction was used. FINDINGS: Brain: Extra-axial spaces: No abnormal extra-axial fluid collections. Ventricular system: Within normal limits Cerebral parenchyma: No acute intraparenchymal hemorrhage or mass effect. The lorenzo-white junction is well differentiated. Cerebellum: Unremarkable. Mass effect: No evidence of midline shift. Intracranial vasculature: unremarkable Soft tissues: Normal. Calvarium/osseous structures: No depressed skull fracture. Paranasal sinuses and mastoid air cells: Clear. Visualized orbits: Bilateral aphakia Cervical spine: Fracture: None. Osseous structures: Postsurgical changes with fusion of the skull and cervical spine extending from t he occiput to T2. Hardware posteriorly appears intact at all levels. No evidence for hardware failure . There is laminectomy changes extending from C3 to C7. Multilevel degenerative disc disease changes with endplate spurring and disc osteophyte complex's. Vertebral alignment: Within normal limits. Spinal canal/Neural Foramina: No evidence of significant spinal canal narrowing. No evidence for sign ificant neural foraminal stenosis. Neck soft tissues: Prevertebral soft tissues are within normal limits. Other: The airway is patent. The lung apices are clear. IMPRESSION: 1. No acute intracranial process. 2. Post fixation changes to the spine hardware appears intact and appropriate position. 3. No evidence of cervical spine fracture. 4. Mild multilevel degenerative disc disease. [facility], , 07/05/2024 10:35 AM
== END | disposition home or self-care (01) ==
LOC: RADCTMAIN 09:19
PROVIDERS: ATTEND Orthopaedic Surgery
DX: M50.30 Other cervical disc degeneration, unspecified cervical region (principal); M43.21 Fusion of spine, occipito-atlanto-axial region
CPT/HCPCS: 70450; 72125